=== PATIENT | female | born 1985 | race Caucasian/White ===

== ENCOUNTER 2016-04-19 18:10 | Emergency (ER) | payer OTHER ==
[~2016-04-19] VITALS: Ht 157.5 cm; Wt 73.9 kg
[~2016-04-19 18:10] MED LIST: ACET50TA PO; ANUS2.5C2 PR; COLA100C PO; DOCU10ELUD PO; IBUP600T26 PO; MOM30SS PO; MOTR200T44 PO; PRENTAB66 PO; TYLE325T5 PO; ZOFR4SOL PO
[2016-04-19 19:17] LABS: BASO % 0.3 % (0.0-1.0); EOS # 0.2 K/mm3 (0.0-0.50); EOS % 1.4 % (0.0-3.0); LARGE UNSTAINED CELL # 0.2 K/mm3 (0.0-0.4); LARGE UNSTAINED CELL % 1.5 % (0.0-4.0); LYMPH # 1.9 K/mm3 (1.5-6.5); LYMPH % 16.3 % (24.0-44.0); MEAN CORPUSCULAR HEMOGLOBIN 31.3 pg (27.0-33.0); MEAN CORPUSCULAR HGB CONC 34.7 g/dl (32.0-36.5); MEAN CORPUSCULAR VOLUME 90.2 fl (80.0-96.0); MONO # 0.6 K/mm3 (0.0-0.8); MONO % 5.5 % (0.0-5.0); NEUTROPHILS # 8.6 K/mm3 (1.8-7.7); NEUTROPHILS % 74.9 % (36.0-66.0); PLATELET COUNT, AUTOMATED 135 k/mm3 (150-450); RED CELL DISTRIBUTION WIDTH 12.5 % (11.5-14.5); WHITE BLOOD COUNT 11.4 K/mm3 (4.0-10.0)
[2016-04-19] MEDS ORDERED: ISOVUE-370 76% 100ML VIAL (Q9967) As Ordered ONE (19:27)
[2016-04-19 19:52] LABS: ALBUMIN 2.6 GM/DL (3.2-5.2); ALKALINE PHOSPHATASE 179 U/L (45-117); ALT/SGPT 16 U/L (12-78); AMYLASE 50 U/L (25-115); ANION GAP 11 MEQ/L (8-16); AST/SGOT 19 U/L (15-37); BILIRUBIN,DIRECT < 0.1 MG/DL (0.0-0.2); BILIRUBIN,TOTAL 0.4 MG/DL (0.2-1.0); BLOOD UREA NITROGEN 8 MG/DL (7-18); CALCIUM LEVEL 8.6 MG/DL (8.5-10.1); CARBON DIOXIDE LEVEL 24 MEQ/L (21-32); CHLORIDE LEVEL 106 MEQ/L (98-107); CREATININE FOR GFR 0.71 MG/DL (0.55-1.02); FREE T4 0.92 NG/DL (0.76-1.46); GLOMERULAR FILTRATION RATE > 60.0 (>60); GLUCOSE, FASTING 80 MG/DL (70-105); POTASSIUM SERUM 3.3 MEQ/L (3.5-5.1); SODIUM LEVEL 141 MEQ/L (136-145); TOTAL PROTEIN 6.3 GM/DL (6.4-8.2)
--- NOTE | 2016-04-19 19:52 | REP ---
Limited obstetric sonography: History: Trauma. Findings: Scanning through the gravid uterus demonstrates a viable single intrauterine gestation in a cephalic lie. heart rate is recorded at 163 beats per minute. A posterior placenta is seen without evidence of placenta previa or abruption. Amniotic fluid is subjectively low normal. KIRSTEN is 5.8 cm (7.6 to 24.7 cm). The S/D ratio in the umbilical cord artery by Doppler is 2.46. This is normal. Closed cervical length is 3.4 cm viewed transabdominally. Impression: 1. Viable single intrauterine gestation at 36 weeks 3 days by comparison with prior study; TINA May 14 2016. 2. Low KIRSTEN. Mild oligohydramnios. 3. No traumatic abnormality noted. Signed by Wilbert Cruz MD 04/19/2016 08:00 P
[2016-04-19 19:53] LABS: INR 1.04
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
--- NOTE | 2016-04-19 19:57 | REP ---
Head CT without contrast: History: Syncope. Fall. Comparison study: Comparison head CT study June 23, 2014. CT findings: Bone window settings demonstrate an intact bony calvarium. There is no evidence of skull fracture or incidental bony calvarial lesion. The visualized paranasal sinuses appear clear. No intraorbital abnormality is seen. On soft tissue window setting images; the lateral, third, and fourth ventricles are normal in size and position. Quintanilla-white differentiation pattern is normal above and below the tentorium. There are is no evidence of intracranial hemorrhage. No mass, edema, infarction, or midline shift is seen. No extra-axial fluid collection is appreciated. Impression: Negative noncontrast head CT. Signed by Wilbert Cruz MD 04/19/2016 07:48 P
[2016-04-19] MEDS ORDERED: PRENTAB16 PO (20:07)
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
--- NOTE | 2016-04-19 20:34 | EDDOCDS ---
Nurse's Notes [facility] Name: Silvia Sinha Age: 30 yrs Sex: Female : 1985 Arrival Date: 04/19/2016 Time: 18:10 Bed 9 Private MD: NO PRIMARY PHYSICIAN, . Diagnosis: Fall (on) (from) unspecified stairs and steps; related conditions, unspecified-3rd trimester ; mild oligohydramnios;Abdominal and pelvic pain-rule out placenta injury Presentation: 04/19 18:15 Presenting complaint: Patient states: 36 weeks , syncopal episode at home woke mlb1 up on the stairs reports pain in lower back right flank and LLQ. Adult Sepsis Screening: The patient does not have new or worsening altered mentation. Patient's respiratory rate is less than 22. Systolic blood pressure is greater than 100. Patient has a qSOFA score of 0- Negative Sepsis Screen. Suicide/Homicide risk assessment- the patient denies having any suicidal and/or homicidal ideations and does not present with any other emotional, behavioral or mental health complaints. Status: Patient is not a senior manager creative services or dependent. Transition of care: patient was not received from another setting of care. 18:15 Acuity: JO Level 3 mlb1 18:15 Method Of Arrival: Walkin/Carried/Asstd mlb1 Triage Assessment: 18:17 General: Appears in no apparent distress, Behavior is appropriate for age, cooperative. mlb1 Pain: Location: low back area and right flank, LLQ Pain currently is 8 out of 10 on a pain scale. HIV screening NA for this visit Offered previously. 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 Vitamin Oral tab 1 tab once daily - PMHx: none; - PSHx: Cholecystectomy; - Social history: Smoking status: Patient states was never smoker of tobacco. No barriers to communication noted, The patient speaks fluent Russian, Speaks appropriately for age. - Family history: Not pertinent. - : The pt / caregiver states he / she is not on anticoagulants. Home medication list is obtained from the patient. - Exposure Risk Screening:: None identified. Screenin:37 Screening information is obtained from. Screening information is obtained from the mlc patient. Fall risk: At risk due to injury, prior history of falls. Assistance ADL's: requires no assistance with activities of daily living. Abuse/DV Screen: The patient / caregiver reports he/she is: not in a situation that causes fear, pain or injury. Nutritional screening: No deficits noted. Advance Directives: Currently, there is no health care proxy. home support is adequate. Assessment: 18:37 General: Appears in no apparent distress, appears uncomfortable. indicates discomfort jmk to right lateral abdomen. Gravid abdomen. Presently without the discomfort that she has experienced to upper and lower abd x 1 month with visits to OB regarding the same issues. without vaginal bleeding or discharge.. reports less activity. bowel sounds present x 4. without redness or ecchymosis. Monitor is sr without ectopy . FHT 154 and of good quality.. 19:15 General: Appears in no apparent distress, comfortable, Behavior is anxious, mlc cooperative. Pain: Location: posterior aspect of right lateral abdomen, anterior aspect of right lateral abdomen, posterior aspect of left lateral abdomen, anterior aspect of left lateral abdomen, right lower quadrant and left lower quadrant Pain currently is 8 out of 10 on a pain scale. Pain radiates to low back area. Neurological: Level of Consciousness is awake, alert, obeys commands, Oriented to person, place, time. Cardiovascular: Capillary refill < 3 seconds Heart tones S1 S2 present Rhythm is sinus rhythm. Respiratory: Airway is patent Respiratory effort is even, unlabored, Respiratory pattern is regular, Breath sounds are clear bilaterally. GI: Abdomen is gravid Bowel sounds present X 4 quads. Derm: Skin is pink, warm & dry. Musculoskeletal: Circulation, motion, and sensation intact. 19:53 Reassessment: Patient appears in no apparent distress at this time. Patient states mlc symptoms have not improved. pt taken to and returned from CT, tolerated well. IV fluids infusing per order. monitoring continued by L&D nurse at bedside. 20:28 General: Appears in no apparent distress, uncomfortable, Behavior is cooperative. Pain: mlc Pain currently is 10 out of 10 on a pain scale. Neurological: Level of Consciousness is awake, alert, obeys commands, Oriented to person, place, time. Cardiovascular: Rhythm is sinus rhythm. Respiratory: Airway is patent Respiratory effort is even, unlabored, Respiratory pattern is regular. Derm: Skin is pink, warm & dry. Vital Signs: 18:12 BP 121 / 73; Pulse 106; Resp 18 S; Temp 97.0(O); Pulse Ox 97% ; Weight 73.94 kg (R); gr2 Height 5 ft. 2 in. (157.48 cm) (R); Pain 6/10; 18:36 BP 125 / 76 (auto/); mlc 18:37 Pulse 82 MON; Pulse Ox 95% ; mlc 19:06 BP 116 / 76 (auto/); mlc 19:07 Pulse 96 MON; Pulse Ox 94% ; mlc 19:36 BP 127 / 72 (auto/); mlc 19:37 Pulse 88 MON; Pulse Ox 97% ; mlc 19:51 BP 111 / 58 (auto/); mlc 19:52 Pulse 96 MON; Pulse Ox 99% ; mlc 20:06 BP 128 / 77 (auto/); mlc 20:07 Pulse 94 MON; Pulse Ox 98% ; mlc 20:21 BP 115 / 73 (auto/); mlc 20:22 Pulse 90 MON; Pulse Ox 99% ; mlc 20:29 BP 114 / 71; Pulse 87; Resp 20; Temp 98.4; Pulse Ox 100% on R/A; Pain 10/10; mlc 18:12 Body Mass Index 29.81 (73.94 kg, 157.48 cm) gr2 Vitals: 18:12 Log In Time: April 19, 2016 at 18:12. RN notified that patient meets Red Flag gr2 criteria. ED Course: 18:11 Patient visited by Juan Jose Nichols. gr2 18:11 Patient moved to Waiting gr2 18:12 NO PRIMARY PHYSICIAN, . is Private Physician. gr2 18:15 Patient visited by Juan Jose Nichols. gr2 18:15 Patient visited by Keshav Huffman, BATOOL. mlb1 18:17 Triage Initiated mlb1 18:18 Patient visited by Keshav Huffman RN. mlb1 18:21 Patient moved to 9 mlb1 18:37 The patient / caregiver is instructed regarding the plan of care and ED course. Cardiac mlc monitor on. Pulse ox on. NIBP on. monitoring done by L&D nurse. 18:37 Inserted saline lock: 20 gauge in left antecubital area and blood collected. The mlc patient tolerated the procedure well. by Prateek Kendrick RN. 18:50 Tony Newton MD is Attending Physician. ml 18:51 Patient visited by Tony Newton MD. ml 18:55 Lynette Agudelo,RN is Primary Nurse. mlc 19:01 Type & Screen Sent. mlc 19:01 Lipase Sent. mlc 19:01 Amylase Sent. mlc 19:01 Liver Profile Sent. mlc 19:02 MED Profile Sent. mlc 19:02 CBC with Diff Sent. mlc 19:15 FT4&TSH PANEL Sent. mlc 19:19 Patient visited by Lynette Agudelo,BATOOL. mlc 19:53 D-DIMER QUANT Sent. mlc 19:55 Patient visited by Lynette Agudelo,BATOOL. mlc 20:05 Patient visited by Vicenta Newby PCA. cln 20:05 EKG done. (by ED staff). Reviewed by Tony Newton MD. cln 20:06 [facility] Payment Agreement was scanned into [employer] and attached to record. zo 20:16 Obs. Limited, KIRSTEN US Returned. EDMS 20:16 US Abd Limited Returned. EDMS 20:16 CT Head Without Contrast Returned. EDMS 20:19 Kaleb Sinclair MD is Hospitalizing Provider. ml 20:29 No procedures done that require assistance. mlc Administered Medications: 19:12 Drug: NS 0.9% 1000 ml [sodium chloride 0.9 % intravenous solution] Route: IV; Rate: mlc bolus; Site: left antecubital; Order Results: Lab Order: CBC with Diff; SPEC'M 04/19/16 18:53 Test: WHITE BLOOD COUNT; Value: 11.4; Range: 4.0-10.0; Abnormal: Above high normal; Units: K/mm3; Status: F Test: RED BLOOD COUNT; Value: 4.10; Range: 4.00-5.40; Units: M/mm3; Status: F Test: HEMOGLOBIN; Value: 12.8; Range: 12.0-16.0; Units: g/dl; Status: F Test: HEMATOCRIT; Value: 36.9; Range: 36.0-47.0; Units: %; Status: F Test: MEAN CORPUSCULAR VOLUME; Value: 90.2; Range: 80.0-96.0; Units: fl; Status: F Test: MEAN CORPUSCULAR HEMOGLOBIN; Value: 31.3; Range: 27.0-33.0; Units: pg; Status: F Test: MEAN CORPUSCULAR HGB CONC; Value: 34.7; Range: 32.0-36.5; Units: g/dl; Status: F Test: RED CELL DISTRIBUTION WIDTH; Value: 12.5; Range: 11.5-14.5; Units: %; Status: F Test: PLATELET COUNT, AUTOMATED; Value: 135; Range: 150-450; Abnormal: Below low normal; Units: k/mm3; Status: F Test: NEUTROPHILS %; Value: 74.9; Range: 36.0-66.0; Abnormal: Above high normal; Units: %; Status: F Test: LYMPH %; Value: 16.3; Range: 24.0-44.0; Abnormal: Below low normal; Units: %; Status: F Test: MONO %; Value: 5.5; Range: 0.0-5.0; Abnormal: Above high normal; Units: %; Status: F Test: EOS %; Value: 1.4; Range: 0.0-3.0; Units: %; Status: F Test: BASO %; Value: 0.3; Range: 0.0-1.0; Units: %; Status: F Test: LARGE UNSTAINED CELL %; Value: 1.5; Range: 0.0-4.0; Units: %; Status: F Test: NEUTROPHILS #; Value: 8.6; Range: 1.8-7.7; Abnormal: Above high normal; Units: K/mm3; Status: F Test: LYMPH #; Value: 1.9; Range: 1.5-6.5; Units: K/mm3; Status: F Test: MONO #; Value: 0.6; Range: 0.0-0.8; Units: K/mm3; Status: F Test: EOS #; Value: 0.2; Range: 0.0-0.50; Units: K/mm3; Status: F Test: BASO #; Value: 0.0; Range: 0.0-0.2; Units: K/mm3; Status: F Test: LARGE UNSTAINED CELL #; Value: 0.2; Range: 0.0-0.4; Units: K/mm3; Status: F Lab Order: MED Profile; [facility] 04/19/16 18:53 Test: GLUCOSE, FASTING; Value: 80; Range: 70-105; Units: MG/DL; Status: F Test: BLOOD UREA NITROGEN; Value: 8; Range: 7-18; Units: MG/DL; Status: F Test: CREATININE FOR GFR; Value: 0.71; Range: 0.55-1.02; Units: MG/DL; Status: F Test: GLOMERULAR FILTRATION RATE; Value: > 60.0; Range: >60; Status: F Test: SODIUM LEVEL; Value: 141; Range: 136-145; Units: MEQ/L; Status: F Test: POTASSIUM SERUM; Value: 3.3; Range: 3.5-5.1; Abnormal: Below low normal; Units: MEQ/L; Status: F Test: CHLORIDE LEVEL; Value: 106; Range: 98-107; Units: MEQ/L; Status: F Test: CARBON DIOXIDE LEVEL; Value: 24; Range: 21-32; Units: MEQ/L; Status: F Test: ANION GAP; Value: 11; Range: 8-16; Units: MEQ/L; Status: F Test: CALCIUM LEVEL; Value: 8.6; Range: 8.5-10.1; Units: MG/DL; Status: F Test Note: ; Units are mL/min/1.73 m2 Chronic Kidney Disease Staging per NKF: Stage I & II GFR >=60 Normal to Mildly Decreased Stage III GFR 30-59 Moderately Decreased Stage IV GFR 15-29 Severely Decreased Stage V GFR <15 Very Little GFR Left ESRD GFR <15 on RN MDS Lab Order: Liver Profile; [facility] 04/19/16 18:53 Test: AST/SGOT; Value: 19; Range: 15-37; Units: U/L; Status: F Test: ALT/SGPT; Value: 16; Range: 12-78; Units: U/L; Status: F Test: ALKALINE PHOSPHATASE; Value: 179; Range: 45-117; Abnormal: Above high normal; Units: U/L; Status: F Test: BILIRUBIN,TOTAL; Value: 0.4; Range: 0.2-1.0; Units: MG/DL; Status: F Test: BILIRUBIN,DIRECT; Value: < 0.1; Range: 0.0-0.2; Units: MG/DL; Status: F Test: TOTAL PROTEIN; Value: 6.3; Range: 6.4-8.2; Abnormal: Below low normal; Units: GM/DL; Status: F Test: ALBUMIN; Value: 2.6; Range: 3.2-5.2; Abnormal: Below low normal; Units: GM/DL; Status: F Test: ALBUMIN/GLOBULIN RATIO; Value: 0.70; Range: 1.00-1.93; Abnormal: Below low normal; Status: F Lab Order: Amylase; [facility] 04/19/16 18:53 Test: AMYLASE; Value: 50; Range: 25-115; Units: U/L; Status: F Lab Order: Lipase; [facility] 04/19/16 18:53 Test: LIPASE; Value: 146; Range: 73-393; Units: U/L; Status: F Lab Order: Fibrinogen; [facility] 04/19/16 18:53 Test: FIBRINOGEN; Value: 389; Range: 221-452; Units: MG/DL; Status: F Lab Order: PT/INR; [facility] 04/19/16 18:53 Test: PROTHROMBIN TIME; Value: 13.7; Range: 12.3-14.5; Units: SECONDS; Status: F Test: INR; Value: 1.04; Status: F Test Note: ; THERAPUTIC HUMAN INR VALUES INDICATIONS NORMAL RANGES PROPHYLAXIS/TREATMENT OF: VENOUS THROMBOSIS 2.0-3.0 PULMONARY EMBOLISM 2.0-3.0 PREVENTION OF SYSTEMIC EMBOLISM FROM: TISSUE HEART VALVES 2.0-3.0 ACUTE MYOCARDIAL INFARCTION 2.0-3.0 VALVULAR HEART DISEASE 2.0-3.0 ATRIAL FIBRILLATION 2.0-3.0 MECHANICAL VALVES(HIGH RISK) 2.5-3.5 RECURRENT MYOCARDIAL INFARCTION 2.5-3.5 Lab Order: PTT; [facility] 18:53 Test: PARTIAL THROMBOPLASTIN TIME; Value: 24.0; Range: 26.6-37.1; Abnormal: Below low normal; Units: SECONDS; Status: F Lab Order: FT4&TSH PANEL; [facility] 04/19/16 18:53 Test: THYROID STIMULATING HORMONE; Value: 1.240; Range: 0.358-3.740; Units: uIU/ML; Status: F Test: FREE T4; Value: 0.92; Range: 0.76-1.46; Units: NG/DL; Status: F Lab Order: D-DIMER QUANT; SPEC'M 04/19/16 18:53 Test: D-DIMER QUANT; Value: 1377.4; Range: <500; Abnormal: Above high normal; Units: ng/ml; Status: F Radiology Order: CT Head Without Contrast Test: CT Head Without Contrast REASON FOR EXAMINATION: syncope, fall; Head CT without contrast:; ; History: Syncope. Fall.; ; Comparison study: Comparison head CT study June 23, 2014.; ; CT findings: Bone window settings demonstrate an intact bony calvarium. There; is no evidence of skull fracture or incidental bony calvarial lesion. The; visualized paranasal sinuses appear clear. No intraorbital abnormality is seen.; On soft tissue window setting images; the lateral, third, and fourth ventricles; are normal in size and position. Quintanilla-white differentiation pattern is normal; above and below the tentorium. There are is no evidence of intracranial; hemorrhage. No mass, edema, infarction, or midline shift is seen. No; extra-axial fluid collection is appreciated.; ; Impression:; ; Negative noncontrast head CT.; ; ; Signed by; Wilbert Cruz MD 04/19/2016 07:48 P; Radiology Order: Obs. Limited, KIRSTEN US Test: Obs. Limited, KIRSTEN US REASON FOR EXAMINATION: 36 wks preg; trauma;ruq pain/luq pain; Limited obstetric sonography:; ; History: Trauma.; ; Findings: Scanning through the gravid uterus demonstrates a viable single; intrauterine gestation in a cephalic lie. heart rate is recorded at; 163 beats per minute. A posterior placenta is seen without evidence of placenta; previa or abruption. Amniotic fluid is subjectively low normal. KIRSTEN is 5.8 cm; (7.6 to 24.7 cm). The S/D ratio in the umbilical cord artery by Doppler is 2.46.; This is normal. Closed cervical length is 3.4 cm viewed transabdominally.; ; Impression:; ; 1. Viable single intrauterine gestation at 36 weeks 3 days by comparison with; prior study; TINA May 14 2016.; ; 2. Low KIRSTEN. Mild oligohydramnios.; ; 3. No traumatic abnormality noted.; ; ; Signed by; Wilbert Cruz MD 04/19/2016 08:00 P; Radiology Order: US Abd Limited Test: US Abd Limited REASON FOR EXAMINATION: FAST exam; Limited abdominal sonography:; ; History: Trauma, FAST exam.; ; Findings: Four-quadrant abdominal survey sonography shows no evidence of; abnormal abdominal fluid.; ; Impression:; ; Negative FAST exam post trauma. No free fluid seen.; ; ; Signed by; Wilbert Cruz MD 04/19/2016 08:00 P; Outcome: 20:20 Decision to Hospitalize by Provider. 20:29 Discharge Assessment: Patient awake, alert and oriented x 3. No cognitive and/or mlc functional deficits noted. Patient verbalized understanding of disposition instructions. patient administered narcotics - no. The following High Risk Discharge criteria are identified: None. Admitted to L & D, via wheelchair. Condition: stable. CT Study completed. Ultrasound Study completed. Property :Personal belongings accompany Pt. 20:32 Patient left the ED. [facility] [place] Signatures: Dispatcher [employer] EDMS Tony Newton MD MD Prateek Kendrick,RN RN Keshav Fritz RN RN mlb1 Danitza Corrales Gainslee gr2 Lynette Agudelo,BATOOL RN [facility] [place] Vicenta Newby PCA PCA cln Corrections: (The following items were deleted from the chart) 19:37 19:36 D-DIMER QUANT+LAB sent. [facility] [place] EDMS CHRISTINE
--- NOTE | 2016-04-19 21:41 | HPE ---
DATE OF ADMISSION: A 30-year-old G5, P4 female at 36-3/7 weeks gestation by last menstrual period (LMP) consistent with 9-week ultrasound, estimated date of confinement (EDC) 05/14/2016 presents to the emergency room after a near-syncopal episode that resulted in a fall on some stairs. She started to feel dizzy, and before she knew it she had fallen down three to four stairs, landing on her back toward the right side. She was helped up by one of her children. She is experiencing severe right-sided flank pain after the fall. She is also experiencing diffuse abdominal pain. No bleeding. The baby is moving well. She was directed to come to the emergency room for evaluation. COURSE: Patient initiated care at 14 weeks gestation. Her blood pressure 112/68, weight 154 pounds. has been complicated by chronic low back pain as well as lower pelvic pain for the majority of the . She attributes her back pain to a prior injury she received in high school after a fall. She is taking Tylenol as needed for pain. MEDICAL HISTORY: Back pain. SURGICAL HISTORY: Cholecystectomy. ALLERGIES: CLARITIN AND REGLAN. SOCIAL HISTORY: The patient lives with her partner and their children. She denies cigarettes, alcohol, or drug use. She lives in the [place], [place] area. FAMILY HISTORY: Noncontributory. PHYSICAL EXAMINATION: Blood pressure 120/76, pulse 84. She appears moderately uncomfortable. HEAD AND NECK: Normal. LUNGS: Clear. HEART: Respiratory rate. ABDOMEN: Soft, diffusely tender. No rebound. No guarding. No costovertebral angle (CVA) tenderness. EXTREMITIES: Nontender. LABORATORY DATA: Blood type is O positive, Rubella immune, RPR nonreactive, hepatitis B and C negative. ASSESSMENT: A 30-year-old G5, P4 female at 36-3/7 weeks status post fall. Patient is admitted to the labor for prolonged monitoring. She has been cleared from the emergency room after having both a CAT scan and pelvic ultrasound. She also had an EKG, which was normal.
--- NOTE | 2016-04-19 21:43 | REP ---
CT abdomen and pelvis with IV but without oral contrast: History: 36 weeks gestation, injury in a fall. Right upper quadrant and left upper quadrant pain. Right-sided guarding. Paraspinal tenderness. Study is acquired in the concurrence of the referring ED provider as well as consulting CLOUD ADMINISTRATOR and general surgery providers. CT contrast dose: 75 ml of Isovue [address] findings: Digital lactation nurse radiograph demonstrates a gravid uterus and a cephalic fetus. Umbilical jewelry and a clip in the right upper quadrant are also noted. The lung bases are clear on axial CT images. The liver and the spleen are intact and homogeneous. No pancreatic abnormality is seen. There is a clip in the gallbladder fossa. No adrenal lesion is seen. The kidneys enhance symmetrically and are morphologically intact. There is mild cortical scarring in the right kidney at the upper pole. The right kidney is a little smaller than the left. Right renal length is 9.5 cm. Left kidney measures 12.2 cm in length. There is no evidence of pneumoperitoneum or hemoperitoneum. No retroperitoneal hematoma or mass is seen. The gravid uterus contains a cephalic fetus with a spine along the maternal left side. Placenta is posterior. No CT evidence of abruption. No CT evidence of fracture. Urinary bladder is deformed by the but otherwise unremarkable. Small and large intestinal bowel loops are normal in appearance. Bone window settings show no evidence of maternal fracture. Impression: 1. Mild focal cortical scarring right kidney; right kidney smaller than left. No hydronephrosis. 2. Postcholecystectomy. 3. The gravid uterus cephalic fetus posterior placenta. 4. No evidence of intra-abdominal injury. No fracture seen. Signed by Wilbert Cruz MD 04/20/2016 08:20 A
--- NOTE | 2016-04-21 20:05 | ECGEPIP ---
Stationary ECG Study [facility] - ED Test Date: 2016-04-19 Pat Name: SINDY MARTINI Department: Room: - Gender: F [employer] Worker: harjinder : 1985 Requested By: Tony Newton Order Number: [id number] Reading MD: Yessica Mccoy Measurements Intervals Backus Rate: 86 P: 72 NJ: 142 QRS: 39 QRSD: 88 T: 18 QT: 363 QTc: 434 Interpretive Statements SINUS RHYTHM NO PRIOR FOR COMPARISON Electronically Signed On 04-21-2016 20:05:06 EST by Yessica Mccoy
--- NOTE | 2016-04-21 21:33 | EDDOCDS ---
Physician Documentation [facility] Name: Silvia Sinha Age: 30 yrs Sex: Female : 1985 Arrival Date: 04/19/2016 Time: 18:10 Bed 9 Private MD: NO PRIMARY PHYSICIAN, . Disposition: 04/19 20:20 Critical Care:. ml Disposition: 04/19/16 20:20 Hospitalization ordered by Kaleb Hughes for Inpatient Admission. Preliminary diagnosis are Fall (on) (from) unspecified stairs and steps, related conditions, unspecified - 3rd trimester ; mild oligohydramnios, Abdominal and pelvic pain - rule out placenta injury. - Bed requested for Admit. - Status is Inpatient Admission. mlc - Condition is Stable. - Problem is new. - Symptoms are unchanged. Historical: - Allergies: Claritin; Reglan; - Home Meds: 1. Vitamin Oral tab 1 tab once daily - PMHx: none; - PSHx: Cholecystectomy; - Social history: Smoking status: Patient states was never smoker of tobacco. No barriers to communication noted, The patient speaks fluent Maori, Speaks appropriately for age. - Family history: Not pertinent. - : The pt / caregiver states he / she is not on anticoagulants. Home medication list is obtained from the patient. - Exposure Risk Screening:: None identified. 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 2 in. (157.48 cm) (R); Pain 6/10; 18:36 BP 125 / 76 (auto/); mlc 18:37 Pulse 82 MON; Pulse Ox 95% ; mlc 19:06 BP 116 / 76 (auto/); mlc 19:07 Pulse 96 MON; Pulse Ox 94% ; mlc 19:36 BP 127 / 72 (auto/); mlc 19:37 Pulse 88 MON; Pulse Ox 97% ; mlc 19:51 BP 111 / 58 (auto/); mlc 19:52 Pulse 96 MON; Pulse Ox 99% ; mlc 20:06 BP 128 / 77 (auto/); mlc 20:07 Pulse 94 MON; Pulse Ox 98% ; mlc 20:21 BP 115 / 73 (auto/); mlc 20:22 Pulse 90 MON; Pulse Ox 99% ; mlc 20:29 BP 114 / 71; Pulse 87; Resp 20; Temp 98.4; Pulse Ox 100% on R/A; Pain 10/10; mlc 18:12 Body Mass Index 29.81 (73.94 kg, 157.48 cm) gr2 MDM: 18:56 ECG WITH READING ER PHYS+CARDIAG ordered. EDMS 19:00 IV Saline Lock ordered. ml 19:00 Heart Tones ordered. ml 19:01 Type & Screen Ordered. EDMS 19:01 CBC with Diff Ordered. EDMS 19:01 MED Profile Ordered. EDMS 19:01 Liver Profile Ordered. EDMS 19:01 Amylase Ordered. EDMS 19:01 Lipase Ordered. EDMS 19:06 Shuttle Buggy Operator/Pulse Ox/q 15 min VS ordered. ml 19:06 Rhythm Strip to chart ordered. ml 19:06 NS 0.9% 1000 ml IV at bolus once ordered. ml 19:07 [facility] Order ordered. ml 19:08 BED REQUEST+ADM ordered. EDMS 19:09 Fibrinogen Ordered. EDMS 19:09 PT/INR Ordered. EDMS 19:09 PTT Ordered. EDMS 19:09 Obs. Limited, KIRSTEN US Ordered. EDMS 19:09 Kleihauer Betke Ordered. EDMS 19:09 CT ABD & PELVIS: IV Contrast Only Ordered. EDMS 19:09 CT Head Without Contrast Ordered. EDMS 19:14 FT4&TSH PANEL Ordered. EDMS 19:14 US Abd Limited Ordered. EDMS 19:31 [facility] Order complete. kb5 19:37 D-DIMER QUANT Ordered. EDMS 19:38 Financial registration complete. zo 20:06 [facility] Payment Agreement was scanned into [employer] and attached to record. zo 20:15 CBC with Diff Reviewed. ml 20:15 MED Profile Reviewed. ml 20:15 Liver Profile Reviewed. ml 20:15 PTT Reviewed. ml 20:15 D-DIMER QUANT Reviewed. ml 20:15 Amylase Reviewed. ml 20:15 Lipase Reviewed. ml 20:15 Fibrinogen Reviewed. ml 20:15 PT/INR Reviewed. ml 20:15 FT4&TSH PANEL Reviewed. ml 20:21 CT Head Without Contrast Reviewed. ml 20:21 Obs. Limited, KIRSTEN US Reviewed. ml 20:21 US Abd Limited Reviewed. ml 20:28 ED course: spoke to dr hughes. significant other not making eye contact or engaging w leonel me or the pt. i am uncomfortable with this and discussed w dr hughes to explore upstairs re rule out domestic violence. L and D RN had similar concern when i asked to speak to her outside the room. mlg. 04/20 10:54 T-Sheet-- Draft Copy was scanned into [employer] and attached to record. gb 10:54 ECG/EKG was scanned into [employer] and attached to record. gb Administered Medications: 04/19 19:12 Drug: NS 0.9% 1000 ml [sodium chloride 0.9 % intravenous solution] Route: IV; Rate: mlc bolus; Site: left antecubital; Critical Care Time: 20:20 Critical care time: Bedside Care: 90 minutes, Consultation: 10 minutes. Total time: 100 ml minutes Signatures: Dispatcher [employer] EDTony Bravo MD MD ml Knapp, Jean,RN RN Rafaela Núñez, Latrell Reg Keshav Higgins RN RN mlb1 Danitza Corrales Kristopher, SURFACE MOUNT TECHNOLOGY OPERATOR SURFACE MOUNT TECHNOLOGY OPERATOR kb5 Lynette Agudelo,RN RN mlc The chart was reviewed and I authenticate all verbal orders and agree with the evaluation and treatment provided.Corrections: (The following items were deleted from the chart) 19:09 19:07 US OBS EACH ADD GEST+US ordered. EDMS EDMS 19:14 19:09 FT4&TSH PANEL+LAB ordered. EDMS EDMS 19:37 19:32 D-DIMER QUANT+LAB ordered. EDMS EDMS Attachments: 20:06 [facility] Payment Agreement zo 04/20 10:54 T-Sheet-- Draft Copy gb 10:54 ECG/EKG gb Chart Complete MTDD
--- NOTE | 2016-04-21 21:34 | EDDOCDS ---
Physician Documentation [facility] Name: Silvia Sinha Age: 30 yrs Sex: Female : 1985 Arrival Date: 04/19/2016 Time: 18:10 Bed 9 Private MD: NO PRIMARY PHYSICIAN, . Disposition: 04/19 20:20 Critical Care:. ml Disposition: 04/19/16 20:20 Hospitalization ordered by Kaleb Hughes for Inpatient Admission. Preliminary diagnosis are Fall (on) (from) unspecified stairs and steps, related conditions, unspecified - 3rd trimester ; mild oligohydramnios, Abdominal and pelvic pain - rule out placenta injury. - Bed requested for Admit. - Status is Inpatient Admission. mlc - Condition is Stable. - Problem is new. - Symptoms are unchanged. Historical: - Allergies: Claritin; Reglan; - Home Meds: 1. Vitamin Oral tab 1 tab once daily - PMHx: none; - PSHx: Cholecystectomy; - Social history: Smoking status: Patient states was never smoker of tobacco. No barriers to communication noted, The patient speaks fluent Vietnamese, Speaks appropriately for age. - Family history: Not pertinent. - : The pt / caregiver states he / she is not on anticoagulants. Home medication list is obtained from the patient. - Exposure Risk Screening:: None identified. 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 2 in. (157.48 cm) (R); Pain 6/10; 18:36 BP 125 / 76 (auto/); mlc 18:37 Pulse 82 MON; Pulse Ox 95% ; mlc 19:06 BP 116 / 76 (auto/); mlc 19:07 Pulse 96 MON; Pulse Ox 94% ; mlc 19:36 BP 127 / 72 (auto/); mlc 19:37 Pulse 88 MON; Pulse Ox 97% ; mlc 19:51 BP 111 / 58 (auto/); mlc 19:52 Pulse 96 MON; Pulse Ox 99% ; mlc 20:06 BP 128 / 77 (auto/); mlc 20:07 Pulse 94 MON; Pulse Ox 98% ; mlc 20:21 BP 115 / 73 (auto/); mlc 20:22 Pulse 90 MON; Pulse Ox 99% ; mlc 20:29 BP 114 / 71; Pulse 87; Resp 20; Temp 98.4; Pulse Ox 100% on R/A; Pain 10/10; mlc 18:12 Body Mass Index 29.81 (73.94 kg, 157.48 cm) gr2 MDM: 18:56 ECG WITH READING ER PHYS+CARDIAG ordered. EDMS 19:00 IV Saline Lock ordered. ml 19:00 Heart Tones ordered. ml 19:01 Type & Screen Ordered. EDMS 19:01 CBC with Diff Ordered. EDMS 19:01 MED Profile Ordered. EDMS 19:01 Liver Profile Ordered. EDMS 19:01 Amylase Ordered. EDMS 19:01 Lipase Ordered. EDMS 19:06 Tennis Net Maker/Pulse Ox/q 15 min VS ordered. ml 19:06 Rhythm Strip to chart ordered. ml 19:06 NS 0.9% 1000 ml IV at bolus once ordered. ml 19:07 [facility] Financial Accounting Analyst Order ordered. ml 19:08 BED REQUEST+ADM ordered. EDMS 19:09 Fibrinogen Ordered. EDMS 19:09 PT/INR Ordered. EDMS 19:09 PTT Ordered. EDMS 19:09 Obs. Limited, KIRSTEN US Ordered. EDMS 19:09 Kleihauer Betke Ordered. EDMS 19:09 CT ABD & PELVIS: IV Contrast Only Ordered. EDMS 19:09 CT Head Without Contrast Ordered. EDMS 19:14 FT4&TSH PANEL Ordered. EDMS 19:14 US Abd Limited Ordered. EDMS 19:31 [facility] Financial Accounting Analyst Order complete. kb5 19:37 D-DIMER QUANT Ordered. EDMS 19:38 Financial registration complete. zo 20:06 [facility] Payment Agreement was scanned into [employer] and attached to record. zo 20:15 CBC with Diff Reviewed. ml 20:15 MED Profile Reviewed. ml 20:15 Liver Profile Reviewed. ml 20:15 PTT Reviewed. ml 20:15 D-DIMER QUANT Reviewed. ml 20:15 Amylase Reviewed. ml 20:15 Lipase Reviewed. ml 20:15 Fibrinogen Reviewed. ml 20:15 PT/INR Reviewed. ml 20:15 FT4&TSH PANEL Reviewed. ml 20:21 CT Head Without Contrast Reviewed. ml 20:21 Obs. Limited, KIRSTEN US Reviewed. ml 20:21 US Abd Limited Reviewed. ml 20:28 ED course: spoke to dr hughes. significant other not making eye contact or engaging w leonel me or the pt. i am uncomfortable with this and discussed w dr hughes to explore upstairs re rule out domestic violence. L and D RN had similar concern when i asked to speak to her outside the room. mlg. 04/20 10:54 T-Sheet-- Draft Copy was scanned into [employer] and attached to record. gb 10:54 ECG/EKG was scanned into [employer] and attached to record. gb Administered Medications: 04/19 19:12 Drug: NS 0.9% 1000 ml [sodium chloride 0.9 % intravenous solution] Route: IV; Rate: mlc bolus; Site: left antecubital; Critical Care Time: 20:20 Critical care time: Bedside Care: 90 minutes, Consultation: 10 minutes. Total time: 100 ml minutes Signatures: Dispatcher [employer] EDTony Bravo MD MD ml Knapp, Jean,RN RN Rafaela Núñez, Latrell Reg Keshav Higgins RN RN mlb1 Danitza Corrales Kristopher, ROOM WORKER ROOM WORKER kb5 Lynette Agudelo,RN RN mlc The chart was reviewed and I authenticate all verbal orders and agree with the evaluation and treatment provided.Corrections: (The following items were deleted from the chart) 19:09 19:07 US OBS EACH ADD GEST+US ordered. EDMS EDMS 19:14 19:09 FT4&TSH PANEL+LAB ordered. EDMS EDMS 19:37 19:32 D-DIMER QUANT+LAB ordered. EDMS EDMS Attachments: 20:06 [facility] [place] Agreement zo 04/20 10:54 T-Sheet-- Draft Copy gb 10:54 ECG/EKG gb Chart Complete MTDD
--- NOTE | 2016-04-21 21:34 | EDDOCDS ---
Nurse's Notes [facility] Name: Sindy Martini Age: 30 yrs Sex: Female : 1985 Arrival Date: 04/19/2016 Time: 18:10 Bed 9 Private MD: NO PRIMARY PHYSICIAN, . Diagnosis: Fall (on) (from) unspecified stairs and steps; related conditions, unspecified-3rd trimester ; mild oligohydramnios;Abdominal and pelvic pain-rule out placenta injury Presentation: 04/19 18:15 Presenting complaint: Patient states: 36 weeks , syncopal episode at home woke mlb1 up on the stairs reports pain in lower back right flank and LLQ. Adult Sepsis Screening: The patient does not have new or worsening altered mentation. Patient's respiratory rate is less than 22. Systolic blood pressure is greater than 100. Patient has a qSOFA score of 0- Negative Sepsis Screen. Suicide/Homicide risk assessment- the patient denies having any suicidal and/or homicidal ideations and does not present with any other emotional, behavioral or mental health complaints. Status: Patient is not a management services technician or dependent. Transition of care: patient was not received from another setting of care. 18:15 Acuity: JO Level 3 mlb1 18:15 Method Of Arrival: Walkin/Carried/Asstd mlb1 Triage Assessment: 18:17 General: Appears in no apparent distress, Behavior is appropriate for age, cooperative. mlb1 Pain: Location: low back area and right flank, LLQ Pain currently is 8 out of 10 on a pain scale. HIV screening NA for this visit Offered previously. 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 Vitamin Oral tab 1 tab once daily - PMHx: none; - PSHx: Cholecystectomy; - Social history: Smoking status: Patient states was never smoker of tobacco. No barriers to communication noted, The patient speaks fluent Cameroonian, Speaks appropriately for age. - Family history: Not pertinent. - : The pt / caregiver states he / she is not on anticoagulants. Home medication list is obtained from the patient. - Exposure Risk Screening:: None identified. Screenin:37 Screening information is obtained from. Screening information is obtained from the mlc patient. Fall risk: At risk due to injury, prior history of falls. Assistance ADL's: requires no assistance with activities of daily living. Abuse/DV Screen: The patient / caregiver reports he/she is: not in a situation that causes fear, pain or injury. Nutritional screening: No deficits noted. Advance Directives: Currently, there is no health care proxy. home support is adequate. Assessment: 18:37 General: Appears in no apparent distress, appears uncomfortable. indicates discomfort jmk to right lateral abdomen. Gravid abdomen. Presently without the discomfort that she has experienced to upper and lower abd x 1 month with visits to OB regarding the same issues. without vaginal bleeding or discharge.. reports less activity. bowel sounds present x 4. without redness or ecchymosis. Monitor is sr without ectopy . FHT 154 and of good quality.. 19:15 General: Appears in no apparent distress, comfortable, Behavior is anxious, mlc cooperative. Pain: Location: posterior aspect of right lateral abdomen, anterior aspect of right lateral abdomen, posterior aspect of left lateral abdomen, anterior aspect of left lateral abdomen, right lower quadrant and left lower quadrant Pain currently is 8 out of 10 on a pain scale. Pain radiates to low back area. Neurological: Level of Consciousness is awake, alert, obeys commands, Oriented to person, place, time. Cardiovascular: Capillary refill < 3 seconds Heart tones S1 S2 present Rhythm is sinus rhythm. Respiratory: Airway is patent Respiratory effort is even, unlabored, Respiratory pattern is regular, Breath sounds are clear bilaterally. GI: Abdomen is gravid Bowel sounds present X 4 quads. Derm: Skin is pink, warm & dry. Musculoskeletal: Circulation, motion, and sensation intact. 19:53 Reassessment: Patient appears in no apparent distress at this time. Patient states mlc symptoms have not improved. pt taken to and returned from CT, tolerated well. IV fluids infusing per order. monitoring continued by L&D nurse at bedside. 20:28 General: Appears in no apparent distress, uncomfortable, Behavior is cooperative. Pain: mlc Pain currently is 10 out of 10 on a pain scale. Neurological: Level of Consciousness is awake, alert, obeys commands, Oriented to person, place, time. Cardiovascular: Rhythm is sinus rhythm. Respiratory: Airway is patent Respiratory effort is even, unlabored, Respiratory pattern is regular. Derm: Skin is pink, warm & dry. Vital Signs: 18:12 BP 121 / 73; Pulse 106; Resp 18 S; Temp 97.0(O); Pulse Ox 97% ; Weight 73.94 kg (R); gr2 Height 5 ft. 2 in. (157.48 cm) (R); Pain 6/10; 18:36 BP 125 / 76 (auto/); mlc 18:37 Pulse 82 MON; Pulse Ox 95% ; mlc 19:06 BP 116 / 76 (auto/); mlc 19:07 Pulse 96 MON; Pulse Ox 94% ; mlc 19:36 BP 127 / 72 (auto/); mlc 19:37 Pulse 88 MON; Pulse Ox 97% ; mlc 19:51 BP 111 / 58 (auto/); mlc 19:52 Pulse 96 MON; Pulse Ox 99% ; mlc 20:06 BP 128 / 77 (auto/); mlc 20:07 Pulse 94 MON; Pulse Ox 98% ; mlc 20:21 BP 115 / 73 (auto/); mlc 20:22 Pulse 90 MON; Pulse Ox 99% ; mlc 20:29 BP 114 / 71; Pulse 87; Resp 20; Temp 98.4; Pulse Ox 100% on R/A; Pain 10/10; mlc 18:12 Body Mass Index 29.81 (73.94 kg, 157.48 cm) gr2 Vitals: 18:12 Log In Time: April 19, 2016 at 18:12. RN notified that patient meets Red Flag gr2 criteria. ED Course: 18:11 Patient visited by Juan Jose Nichols. gr2 18:11 Patient moved to Waiting gr2 18:12 NO PRIMARY PHYSICIAN, . is Private Physician. gr2 18:15 Patient visited by Juan Jose Nichols. gr2 18:15 Patient visited by Keshav Huffman, BATOOL. mlb1 18:17 Triage Initiated mlb1 18:18 Patient visited by Keshav Huffman RN. mlb1 18:21 Patient moved to 9 mlb1 18:37 The patient / caregiver is instructed regarding the plan of care and ED course. Cardiac mlc monitor on. Pulse ox on. NIBP on. monitoring done by L&D nurse. 18:37 Inserted saline lock: 20 gauge in left antecubital area and blood collected. The mlc patient tolerated the procedure well. by Prateek Kendrick, BATOOL. 18:50 Tony Newton MD is Attending Physician. ml 18:51 Patient visited by Tony Newton MD. ml 18:55 Lynette Agudelo,RN is Primary Nurse. mlc 19:01 Type & Screen Sent. mlc 19:01 Lipase Sent. mlc 19:01 Amylase Sent. mlc 19:01 Liver Profile Sent. mlc 19:02 MED Profile Sent. mlc 19:02 CBC with Diff Sent. mlc 19:15 FT4&TSH PANEL Sent. mlc 19:19 Patient visited by Lynette Agudelo,BATOOL. mlc 19:53 D-DIMER QUANT Sent. mlc 19:55 Patient visited by Lynette Agudelo,BATOOL. mlc 20:05 Patient visited by Vicenta Newby PCA. cln 20:05 EKG done. (by ED staff). Reviewed by Tony Newton MD. cln 20:06 [facility] [place] into [employer] and attached to record. zo 20:16 Obs. Limited, KIRSTEN US Returned. EDMS 20:16 US Abd Limited Returned. EDMS 20:16 CT Head Without Contrast Returned. EDMS 20:19 Kaleb Sinclair MD is Hospitalizing Provider. ml 20:29 No procedures done that require assistance. mlc 22:17 CT ABD & PELVIS: IV Contrast Only Returned. EDMS 04/20 10:54 T-Sheet-- Draft Copy was scanned into [employer] and attached to record. gb 10:54 ECG/EKG was scanned into [employer] and attached to record. gb 04/21 20:20 EKG-ADULT Returned. EDMS Administered Medications: 04/19 19:12 Drug: NS 0.9% 1000 ml [sodium chloride 0.9 % intravenous solution] Route: IV; Rate: mlc bolus; Site: left antecubital; Order Results: Lab Order: CBC with Diff; SPEC'M 04/19/16 18:53 Test: WHITE BLOOD COUNT; Value: 11.4; Range: 4.0-10.0; Abnormal: Above high normal; Units: K/mm3; Status: F Test: RED BLOOD COUNT; Value: 4.10; Range: 4.00-5.40; Units: M/mm3; Status: F Test: HEMOGLOBIN; Value: 12.8; Range: 12.0-16.0; Units: g/dl; Status: F Test: HEMATOCRIT; Value: 36.9; Range: 36.0-47.0; Units: %; Status: F Test: MEAN CORPUSCULAR VOLUME; Value: 90.2; Range: 80.0-96.0; Units: fl; Status: F Test: MEAN CORPUSCULAR HEMOGLOBIN; Value: 31.3; Range: 27.0-33.0; Units: pg; Status: F Test: MEAN CORPUSCULAR HGB CONC; Value: 34.7; Range: 32.0-36.5; Units: g/dl; Status: F Test: RED CELL DISTRIBUTION WIDTH; Value: 12.5; Range: 11.5-14.5; Units: %; Status: F Test: PLATELET COUNT, AUTOMATED; Value: 135; Range: 150-450; Abnormal: Below low normal; Units: k/mm3; Status: F Test: NEUTROPHILS %; Value: 74.9; Range: 36.0-66.0; Abnormal: Above high normal; Units: %; Status: F Test: LYMPH %; Value: 16.3; Range: 24.0-44.0; Abnormal: Below low normal; Units: %; Status: F Test: MONO %; Value: 5.5; Range: 0.0-5.0; Abnormal: Above high normal; Units: %; Status: F Test: EOS %; Value: 1.4; Range: 0.0-3.0; Units: %; Status: F Test: BASO %; Value: 0.3; Range: 0.0-1.0; Units: %; Status: F Test: LARGE UNSTAINED CELL %; Value: 1.5; Range: 0.0-4.0; Units: %; Status: F Test: NEUTROPHILS #; Value: 8.6; Range: 1.8-7.7; Abnormal: Above high normal; Units: K/mm3; Status: F Test: LYMPH #; Value: 1.9; Range: 1.5-6.5; Units: K/mm3; Status: F Test: MONO #; Value: 0.6; Range: 0.0-0.8; Units: K/mm3; Status: F Test: EOS #; Value: 0.2; Range: 0.0-0.50; Units: K/mm3; Status: F Test: BASO #; Value: 0.0; Range: 0.0-0.2; Units: K/mm3; Status: F Test: LARGE UNSTAINED CELL #; Value: 0.2; Range: 0.0-0.4; Units: K/mm3; Status: F Lab Order: MED Profile; SPEC'M 04/19/16 18:53 Test: GLUCOSE, FASTING; Value: 80; Range: 70-105; Units: MG/DL; Status: F Test: BLOOD UREA NITROGEN; Value: 8; Range: 7-18; Units: MG/DL; Status: F Test: CREATININE FOR GFR; Value: 0.71; Range: 0.55-1.02; Units: MG/DL; Status: F Test: GLOMERULAR FILTRATION RATE; Value: > 60.0; Range: >60; Status: F Test: SODIUM LEVEL; Value: 141; Range: 136-145; Units: MEQ/L; Status: F Test: POTASSIUM SERUM; Value: 3.3; Range: 3.5-5.1; Abnormal: Below low normal; Units: MEQ/L; Status: F Test: CHLORIDE LEVEL; Value: 106; Range: 98-107; Units: MEQ/L; Status: F Test: CARBON DIOXIDE LEVEL; Value: 24; Range: 21-32; Units: MEQ/L; Status: F Test: ANION GAP; Value: 11; Range: 8-16; Units: MEQ/L; Status: F Test: CALCIUM LEVEL; Value: 8.6; Range: 8.5-10.1; Units: MG/DL; Status: F Test Note: ; Units are mL/min/1.73 m2 Chronic Kidney Disease Staging per NKF: Stage I & II GFR >=60 Normal to Mildly Decreased Stage III GFR 30-59 Moderately Decreased Stage IV GFR 15-29 Severely Decreased Stage V GFR <15 Very Little GFR Left ESRD GFR <15 on CUSTOM GARMENT DESIGNER Lab Order: Liver Profile; SPEC'M 04/19/16 18:53 Test: AST/SGOT; Value: 19; Range: 15-37; Units: U/L; Status: F Test: ALT/SGPT; Value: 16; Range: 12-78; Units: U/L; Status: F Test: ALKALINE PHOSPHATASE; Value: 179; Range: 45-117; Abnormal: Above high normal; Units: U/L; Status: F Test: BILIRUBIN,TOTAL; Value: 0.4; Range: 0.2-1.0; Units: MG/DL; Status: F Test: BILIRUBIN,DIRECT; Value: < 0.1; Range: 0.0-0.2; Units: MG/DL; Status: F Test: TOTAL PROTEIN; Value: 6.3; Range: 6.4-8.2; Abnormal: Below low normal; Units: GM/DL; Status: F Test: ALBUMIN; Value: 2.6; Range: 3.2-5.2; Abnormal: Below low normal; Units: GM/DL; Status: F Test: ALBUMIN/GLOBULIN RATIO; Value: 0.70; Range: 1.00-1.93; Abnormal: Below low normal; Status: F Lab Order: Amylase; [facility] 04/19/16 18:53 Test: AMYLASE; Value: 50; Range: 25-115; Units: U/L; Status: F Lab Order: Lipase; [facility] 04/19/16 18:53 Test: LIPASE; Value: 146; Range: 73-393; Units: U/L; Status: F Lab Order: Type & Screen; [facility] 04/19/16 18:53 Test: BLOOD TYPE; Value: O POS; Status: F Test: AB SCREEN (INDIRECT ISA)VIS; Value: NEGATIVE; Status: F Lab Order: Kleihauer Betke; [facility] 04/19/16 18:53 Test: DEX (KLEIHAUER BETKE); Value: 0.0000; Units: RATIO; Status: F Test Note: ; No cells seen. Lab Order: Fibrinogen; [facility] 04/19/16 18:53 Test: FIBRINOGEN; Value: 389; Range: 221-452; Units: MG/DL; Status: F Lab Order: PT/INR; [facility] 04/19/16 18:53 Test: PROTHROMBIN TIME; Value: 13.7; Range: 12.3-14.5; Units: SECONDS; Status: F Test: INR; Value: 1.04; Status: F Test Note: ; THERAPUTIC HUMAN INR VALUES INDICATIONS NORMAL RANGES PROPHYLAXIS/TREATMENT OF: VENOUS THROMBOSIS 2.0-3.0 PULMONARY EMBOLISM 2.0-3.0 PREVENTION OF SYSTEMIC EMBOLISM FROM: TISSUE HEART VALVES 2.0-3.0 ACUTE MYOCARDIAL INFARCTION 2.0-3.0 VALVULAR HEART DISEASE 2.0-3.0 ATRIAL FIBRILLATION 2.0-3.0 MECHANICAL VALVES(HIGH RISK) 2.5-3.5 RECURRENT MYOCARDIAL INFARCTION 2.5-3.5 Lab Order: PTT; SPEC'M 04/19/16 18:53 Test: PARTIAL THROMBOPLASTIN TIME; Value: 24.0; Range: 26.6-37.1; Abnormal: Below low normal; Units: SECONDS; Status: F Lab Order: FT4&TSH PANEL; SPEC' 04/19/16 18:53 Test: THYROID STIMULATING HORMONE; Value: 1.240; Range: 0.358-3.740; Units: uIU/ML; Status: F Test: FREE T4; Value: 0.92; Range: 0.76-1.46; Units: NG/DL; Status: F Lab Order: D-DIMER QUANT; SPEC' 04/19/16 18:53 Test: D-DIMER QUANT; Value: 1377.4; Range: <500; Abnormal: Above high normal; Units: ng/ml; Status: F Radiology Order: EKG-ADULT Test: EKG-ADULT REASON FOR EXAMINATION: Syncope; Stationary ECG Study; [facility] - ED; ; Test Date: 2016-04-19; Pat Name: SINDY MARTINI Department:; Room: -; Gender: F 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 Right upper quadrant and left; upper quadrant pain. Right-sided guarding. Paraspinal tenderness.; ; Study is acquired in the concurrence of the referring ED provider as well as; consulting EXPLOSIVE OPERATOR SUPERVISOR and general surgery providers.; ; CT contrast dose: 75 ml of Isovue 370 is administered intravenously.; ; CT findings: Digital front office attendant radiograph demonstrates a gravid uterus and a; cephalic fetus. Umbilical jewelry and a clip in the right upper quadrant are; also noted.; ; The lung bases are clear on axial CT images. The liver and the spleen are intact; and homogeneous. No pancreatic abnormality is seen. There is a clip in the; gallbladder fossa. No adrenal lesion is seen. The kidneys enhance symmetrically; and are morphologically intact. There is mild cortical scarring in the right; kidney at the upper pole. The right kidney is a little smaller than the left.; Right renal length is 9.5 cm. Left kidney measures 12.2 cm in length. There is; no evidence of pneumoperitoneum or hemoperitoneum. No retroperitoneal hematoma; or mass is seen. The gravid uterus contains a cephalic fetus with a spine; along the maternal left side. Placenta is posterior. No CT evidence of; abruption. No CT evidence of fracture. Urinary bladder is deformed by the; but otherwise unremarkable. Small and large intestinal bowel loops are; normal in appearance.; ; Bone window settings show no evidence of maternal fracture.; ; Impression:; ; 1. Mild focal cortical scarring right kidney; right kidney smaller than left.; No hydronephrosis.; ; 2. Postcholecystectomy.; ; 3. The gravid uterus cephalic fetus posterior placenta.; ; 4. No evidence of intra-abdominal injury. No fracture seen.; ; ; Signed by; Wilbert Cruz MD 04/20/2016 08:20 A; Radiology Order: CT Head Without Contrast Test: CT Head Without Contrast REASON FOR EXAMINATION: syncope, fall; Head CT without contrast:; ; History: Syncope. Fall.; ; Comparison study: Comparison head CT study June 23, 2014.; ; CT findings: Bone window settings demonstrate an intact bony calvarium. There; is no evidence of skull fracture or incidental bony calvarial lesion. The; visualized paranasal sinuses appear clear. No intraorbital abnormality is seen.; On soft tissue window setting images; the lateral, third, and fourth ventricles; are normal in size and position. Quintanilla-white differentiation pattern is normal; above and below the tentorium. There are is no evidence of intracranial; hemorrhage. No mass, edema, infarction, or midline shift is seen. No; extra-axial fluid collection is appreciated.; ; Impression:; ; Negative noncontrast head CT.; ; ; Signed by; Wilbert Cruz MD 04/19/2016 07:48 P; Radiology Order: Obs. Limited, KIRSTEN US Test: Obs. Limited, KIRSTEN US REASON FOR EXAMINATION: 36 wks preg; trauma;ruq pain/luq pain; Limited obstetric sonography:; ; History: Trauma.; ; Findings: Scanning through the gravid uterus demonstrates a viable single; intrauterine gestation in a cephalic lie. heart rate is recorded at; 163 beats per minute. A posterior placenta is seen without evidence of placenta; previa or abruption. Amniotic fluid is subjectively low normal. KIRSTEN is 5.8 cm; (7.6 to 24.7 cm). The S/D ratio in the umbilical cord artery by Doppler is 2.46.; This is normal. Closed cervical length is 3.4 cm viewed transabdominally.; ; Impression:; ; 1. Viable single intrauterine gestation at 36 weeks 3 days by comparison with; prior study; TINA May 14 2016.; ; 2. Low KIRSTEN. Mild oligohydramnios.; ; 3. No traumatic abnormality noted.; ; ; Signed by; Wilbert Cruz MD 04/19/2016 08:00 P; Radiology Order: US Abd Limited Test: US Abd Limited REASON FOR EXAMINATION: FAST exam; Limited abdominal sonography:; ; History: Trauma, FAST exam.; ; Findings: Four-quadrant abdominal survey sonography shows no evidence of; abnormal abdominal fluid.; ; Impression:; ; Negative FAST exam post trauma. No free fluid seen.; ; ; Signed by; Wilbert Cruz MD 04/19/2016 08:00 P; Outcome: 20:20 Decision to Hospitalize by Provider. ml 20:29 Discharge Assessment: Patient awake, alert and oriented x 3. No cognitive and/or mlc functional deficits noted. Patient verbalized understanding of disposition instructions. patient administered narcotics - no. The following High Risk Discharge criteria are identified: None. Admitted to L & D, via wheelchair. Condition: stable. CT Study completed. Ultrasound Study completed. Property :Personal belongings accompany Pt. 20:32 Patient left the ED. [facility] [place] Signatures: Dispatcher [employer] EDTony Bravo MD MD ml Prateek Kendrick,RN RN Rafaela Núñez, Reg Reg gb Keshav Huffman RN RN mlb1 Danitza Corrales Gainslee gr2 Lynette Agudelo RN RN mlc Nichols, Crystal, PCA PATTERN MAKER cln Corrections: (The following items were deleted from the chart) 19:37 19:36 D-DIMER QUANT+LAB sent. [facility] [place] EDAL Chart Complete MTDD
== END 2016-04-19 20:32 | disposition admitted as inpatient to this hospital (09) ==
LOC: M ED 18:10
DX: O9A.213 Injury, poisoning and certain other consequences of external causes complicating pregnancy, third trimester (principal); M54.9 Dorsalgia, unspecified; R10.2 Pelvic and perineal pain; W10.8XXA Fall (on) (from) other stairs and steps, initial encounter; Y92.098 Other place in other non-institutional residence as the place of occurrence of the external cause; Y93.89 Activity, other specified; Y99.8 Other external cause status; O41.03X1 Oligohydramnios, third trimester, fetus 1; Z88.8 Allergy status to other drugs, medicaments and biological substances; Z3A.36 36 weeks gestation of pregnancy
CPT/HCPCS: 36415; 70450; 74177; 76705; 76815; 80048; 80076; 82150; 83690; 84439; 84443; 85025; 85379; 85384; 85460; 85610; 85730; 86850; 86900; 86901; 93005; 93041; 99285; Q9967

== ENCOUNTER 2016-04-19 20:41 | Outpatient (CLI) | payer OTHER ==
[~2016-04-19] VITALS: Ht 157.5 cm; Wt 72.0 kg
[~2016-04-19 20:41] MED LIST changes: +PRENTAB16 PO
[2016-04-19 21:06] VITALS: BP 110/67
--- NOTE | 2016-04-19 21:41 | HPE ---
DATE OF ADMISSION: 04/19/2016 A 30-year-old G5, P4 female at 36-3/7 weeks gestation by last menstrual period (LMP) consistent with 9-week ultrasound, estimated date of confinement (EDC) 05/14/2016 presents to the emergency room after a near-syncopal episode that resulted in a fall on some stairs. She started to feel dizzy, and before she knew it she had fallen down three to four stairs, landing on her back toward the right side. She was helped up by one of her children. She is experiencing severe right-sided flank pain after the fall. She is also experiencing diffuse abdominal pain. No bleeding. The baby is moving well. She was directed to come to the emergency room for evaluation. COURSE: Patient initiated care at 14 weeks gestation. Her blood pressure 112/68, weight 154 pounds. has been complicated by chronic low back pain as well as lower pelvic pain for the majority of the . She attributes her back pain to a prior injury she received in high school after a fall. She is taking Tylenol as needed for pain. MEDICAL HISTORY: Back pain. SURGICAL HISTORY: Cholecystectomy. ALLERGIES: CLARITIN AND REGLAN. SOCIAL HISTORY: The patient lives with her partner and their children. She denies cigarettes, alcohol, or drug use. She lives in the [place], [place] area. FAMILY HISTORY: Noncontributory. PHYSICAL EXAMINATION: Blood pressure 120/76, pulse 84. She appears moderately uncomfortable. HEAD AND NECK: Normal. LUNGS: Clear. HEART: Respiratory rate. ABDOMEN: Soft, diffusely tender. No rebound. No guarding. No costovertebral angle (CVA) tenderness. EXTREMITIES: Nontender. LABORATORY DATA: Blood type is O positive, Rubella immune, RPR nonreactive, hepatitis B and C negative. ASSESSMENT: A 30-year-old G5, P4 female at 36-3/7 weeks status post fall. Patient is admitted to the labor for prolonged monitoring. She has been cleared from the emergency room after having both a CAT scan and pelvic ultrasound. She also had an EKG, which was normal. edited: 05/08/2016 0938 tkbill KING
== END 2016-04-19 23:00 | disposition home or self-care (01) ==
LOC: M LDO 20:41
PROVIDERS: ATTEND Specialist
DX: O99.89 Other specified diseases and conditions complicating pregnancy, childbirth and the puerperium (principal); Z3A.36 36 weeks gestation of pregnancy; W10.9XXA Fall (on) (from) unspecified stairs and steps, initial encounter; R10.9 Unspecified abdominal pain; R42 Dizziness and giddiness; X58.XXXA Exposure to other specified factors, initial encounter; Y93.9 Activity, unspecified; Y92.9 Unspecified place or not applicable; Y99.8 Other external cause status

== ENCOUNTER → 2016-04-21 | Outpatient (REF) | payer OTHER | LOC: M LAB REF 13:14 | PROVIDERS: ATTEND Obstetrics & Gynecology | DX: Z34.83 Encounter for supervision of other normal pregnancy, third trimester (principal) ==

== ENCOUNTER 2016-05-07 19:58 | Inpatient (IN) | payer OTHER ==
[~2016-05-07] VITALS: Ht 157.5 cm; Wt 70.0 kg
[2016-05-07 20:09] VITALS: BP 116/76
[2016-05-07] MEDS ORDERED: miSOPROStol 50 MCG 1/2 TAB (S0191) PO SCH (21:00)
[2016-05-07] MEDS ORDERED: miSOPROStol 50 MCG 1/2 TAB (S0191) As Ordered ONE (21:04)
[2016-05-07 21:17] LABS: MEAN CORPUSCULAR HEMOGLOBIN 32.2 pg (27.0-33.0); MEAN CORPUSCULAR HGB CONC 35.7 g/dl (32.0-36.5); MEAN CORPUSCULAR VOLUME 90.2 fl (80.0-96.0); WHITE BLOOD COUNT 9.8 K/mm3 (4.0-10.0)
[2016-05-07 21:59] VITALS: BP 107/58
[2016-05-07] MEDS ORDERED: RHOGAM 300 MCG (1500 IU) INJ (J2790) IM SCH (22:00)
[2016-05-07] MEDS ORDERED: METHYLERGONOVINE MALEATE 0.2 MG TAB PO PRN (22:00)
[2016-05-07] MEDS ORDERED: OXYTOCIN DRIP 30 UNITS in APPROPRIATE DILUENT 1 EA IV ONE (22:00)
[2016-05-07] MEDS ORDERED: DOCUSATE SODIUM 100 MG CAP PO PRN (22:00)
[2016-05-07] MEDS ORDERED: DIBUCAINE 1% OINTMENT 30GM TOP PRN (22:00)
[2016-05-07] MEDS ORDERED: ACETAMINOPHEN 500 MG TAB PO PRN (22:00)
[2016-05-07] MEDS ORDERED: MEASLES,MUMPS,RUBELLA VACCINE INJ (MMR-II) (90707) SC SCH (22:00)
[2016-05-07] MEDS ORDERED: IBUPROFEN 800 MG TAB PO PRN (22:00)
[2016-05-08] VITALS (41 sets, daily range): BP systolic 82–131; BP diastolic 50–83
--- NOTE | 2016-05-08 00:24 | HPE ---
DATE OF ADMISSION: 05/07/2016 HISTORY: 30-year-old, (G) 5, para (P) 4 female at 39-0/7 weeks gestation by last menstrual period (LMP) consistent with 9-week ultrasound, estimated date of confinement (EDC) 05/14/2016, presents for labor induction. The patient is having contractions every 8 minutes roughly. The patient's indication for induction is chronic back pain, which is causing significant disability during the . COURSE: The patient's initial care with [facility] was 14 weeks gestation on 11/19/2015. Her blood pressure was 112/68. The remainder of course was unremarkable with the exception of severe back pain issues. The back pain was related to a prior back injury. MEDICAL HISTORY: Back pain. SURGICAL HISTORY: Cholecystectomy. ALLERGIES: CLARITIN and REGLAN. SOCIAL HISTORY: The patient denies cigarettes, alcohol or drug use. Father of the baby is involved. FAMILY HISTORY: Noncontributory. PHYSICAL EXAMINATION: Blood pressure 120/72, weight 163. She appears comfortable. HEAD/NECK: Examination normal. LUNGS: Clear. HEART: Regular rate and rhythm. ABDOMEN: Nontender. Gravid. heart tones category 1. Contractions every 8-10 minutes. STERILE VAGINAL EXAMINATION: 3 cm, 70%, -2 station, vertex, intact. EXTREMITIES: Nontender. LABORATORIES: O positive. Rubella immune. RPR nonreactive. Hepatitis B and C negative. HIV negative. Diabetes screen 93. Group B Streptococcus (GBS) negative on 04/21/2016. ASSESSMENT: 30-year-old (G) 5, para (P) 4 female 39 weeks and 0/7 days gestation presents for labor induction. The risks of induction were discussed. The patient is admitted on 05/07/2016.
[2016-05-08] MEDS ORDERED: miSOPROStol 50 MCG 1/2 TAB (S0191) PO SCH (01:00)
[2016-05-08] MEDS ORDERED: FENTANYL 2MCG/ML ROPIVACAINE 0.2% NACL 250 ML CADD As Ordered ONE (01:10)
[2016-05-08] MEDS ORDERED: OXYTOCIN DRIP 30 UNITS in APPROPRIATE DILUENT 1 EA IV SCH (02:45)
[2016-05-08] MEDS ORDERED: ONDANSETRON 4MG/2ML VIAL (J2405) IV PRN ×2 (08:00→11:45)
[2016-05-08] MEDS ORDERED: METHYLERGONOVINE MALEATE 0.2 MG TAB PO PRN (08:00)
[2016-05-08] MEDS ORDERED: DOCUSATE SODIUM 100 MG CAP PO PRN (08:00)
[2016-05-08] MEDS ORDERED: ACETAMINOPHEN 500 MG TAB PO PRN (08:00)
[2016-05-08] MEDS ORDERED: IBUPROFEN 800 MG TAB PO PRN (08:00)
[2016-05-08] MEDS ORDERED: OXYTOCIN DRIP 30 UNITS in APPROPRIATE DILUENT 1 EA IV ONE (08:00)
[2016-05-08] MEDS ORDERED: DIBUCAINE 1% OINTMENT 30GM TOP PRN (08:00)
[2016-05-08] MEDS ORDERED: RHOGAM 300 MCG (1500 IU) INJ (J2790) IM SCH (08:00)
[2016-05-08] MEDS ORDERED: MEASLES,MUMPS,RUBELLA VACCINE INJ (MMR-II) (90707) SC SCH (08:00)
[2016-05-08] MEDS ORDERED: PRENATAL VITAMIN TAB PO SCH (09:00)
[2016-05-08] MEDS ORDERED: SERTRALINE HCL 50 MG TAB PO SCH (09:00)
[2016-05-08] MEDS: PRENATAL VITAMIN TAB PO SCH (09:00)
--- NOTE | 2016-05-08 09:37 | DN ---
DATE: 05/08/2016 PREDELIVERY DIAGNOSIS: Term , early labor. POSTDELIVERY DIAGNOSIS: Delivered. PROCEDURE: Spontaneous vaginal delivery. SPINDLE MAKER: Dr. Kaleb Sinclair ANESTHESIA: Epidural. ESTIMATED BLOOD LOSS: 300 mL. FINDINGS: 7 pound 9 ounce female infant, Apgars 9 and 9. DELIVERY SUMMARY: After a short second stage, the patient had spontaneous delivery of a 7 pound 9 ounce female , Apgars 9 and 9, under epidural anesthesia. There was no nuchal cord. The shoulders delivered spontaneously with ease. The cried spontaneously and was handed to the mother. The cord was doubly clamped and cut. The placenta delivered spontaneously and appeared to be intact. A small first degree perineal laceration did not require repair. Sponge counts were correct.
[2016-05-08] MEDS ORDERED: LACTATED RINGER'S 1000 ML IV PRN (11:45)
[2016-05-08] MEDS ORDERED: EPIDURAL/PCA KEYS XX PRN (11:45)
[2016-05-08] MEDS ORDERED: NALOXONE INJ 0.4 MG/1 ML VIAL (J2310) IV PRN (11:45)
[2016-05-08] MEDS ORDERED: ePHEDrine SULFATE 25 MG/5 ML(5MG/ML) SYRINGE IV PRN (11:45)
[2016-05-08] MEDS ORDERED: REFRIGERATOR IV KEYS XX PRN (11:45)
[2016-05-08] MEDS ORDERED: FENTANYL/ROPIVACAINE/NACL CADD 250 ML EPIDURAL SCH (11:45)
[2016-05-08] MEDS ORDERED: EPIDURAL COMMENT XX SCH (11:45)
[2016-05-08] MEDS ORDERED: diphenhydrAMINE INJ 50MG/ML VIAL (J1200) IV PRN (11:45)
[2016-05-09 06:10] VITALS: BP 145/78
[2016-05-09] MEDS: PRENATAL VITAMIN TAB PO SCH (09:00)
[2016-05-09] MEDS ORDERED: IBUP-1114 PO (09:39)
[2016-05-09] MEDS ORDERED: ACET50TA PO (09:39)
== END 2016-05-09 10:30 | disposition home or self-care (01) | DRG 560 ==
LOC: M LDO 19:58 → M LDI 20:37 → M OBS 05-08 11:27
PROVIDERS: ADMIT Specialist; ATTEND Specialist
PROC: 10E0XZZ Delivery of Products of Conception, External Approach (ICD-10-PCS; principal; 2016-05-08)
DX: O99.89 Other specified diseases and conditions complicating pregnancy, childbirth and the puerperium (principal); M54.5 Low back pain; Z3A.39 39 weeks gestation of pregnancy; O70.0 First degree perineal laceration during delivery; O26.893 Other specified pregnancy related conditions, third trimester; Z37.0 Single live birth

== ENCOUNTER → 2018-05-13 | Outpatient (CLI) | payer OTHER ==
[~2018-05-13] MED LIST changes: -COLA100C PO; +COLA100C5 PO; +IBUP-1114 PO; +MAPA500T2 PO
== END ==
LOC: M LRY 12:28
PROVIDERS: ATTEND Specialist
DX: N91.2 Amenorrhea, unspecified (principal)

== ENCOUNTER → 2018-05-15 | Outpatient (CLI) | payer OTHER | LOC: M LRY 10:12 | PROVIDERS: ATTEND Specialist | DX: N91.2 Amenorrhea, unspecified (principal) ==

== ENCOUNTER → 2018-06-13 | Outpatient (REF) | payer OTHER ==
[~2018-06-13] MED LIST changes: -ACET50TA PO; -DOCU10ELUD PO; +DOCU5LIQ PO; +MAPA500T17 PO
== END ==
LOC: M LAB REF 19:23
PROVIDERS: ATTEND Physician Assistant
DX: N39.0 Urinary tract infection, site not specified (principal)

== ENCOUNTER → 2018-06-20 | Outpatient (CLI) | payer OTHER ==
[2018-06-20 19:28] LABS: BASO % 0.3 % (0.0-1.0); EOS # 0.3 10^3/uL (0.0-0.50); EOS % 2.9 % (0.0-3.0); HEMATOCRIT 41.3 % (36.0-47.0); HEMOGLOBIN 13.7 g/dl (12.0-15.5); LYMPH # 2.1 10^3/uL (1.5-4.5); LYMPH % 22.4 % (24.0-44.0); MEAN CORPUSCULAR HEMOGLOBIN 30.2 pg (27.0-33.0); MEAN CORPUSCULAR HGB CONC 33.2 g/dl (32.0-36.5); MONO # 0.6 10^3/uL (0.0-0.8); MONO % 6.6 % (0.0-5.0); NEUTROPHILS # 6.3 10^3/uL (1.8-7.7); NEUTROPHILS % 67.4 % (36.0-66.0); PLATELET COUNT, AUTOMATED 242 10^3/uL (150-450); RED BLOOD COUNT 4.54 10^6/uL (4.00-5.40); WHITE BLOOD COUNT 9.3 10^3/uL (4.0-10.0)
[2018-06-20 22:18] LABS: CHLAMYDIA DNA AMPLIFICATION NEGATIVE (NEGATIVE); GC DNA AMPLIFICATION NEGATIVE (NEGATIVE)
[2018-06-21 08:33] LABS: HEPATITIS C VIRUS ABY INDEX 0.1 INDEX (<0.8); HIV 1&2 SCREEN CENTAUR NEGATIVE (NEGATIVE); RUBELLA IgG QUALITATIVE IMMUNE (IMMUNE)
== END ==
LOC: M SMT 13:32
PROVIDERS: ATTEND Advanced Practice Midwife
DX: Z36.89 Encounter for other specified antenatal screening (principal)

== ENCOUNTER → 2018-07-10 | Outpatient (REF) | payer OTHER ==
[2018-07-16 14:16] LABS: HPV HYBRID CAPTURE II Negative (Negative)
== END ==
LOC: M LAB REF 12:52
PROVIDERS: ATTEND Advanced Practice Midwife
DX: Z12.4 Encounter for screening for malignant neoplasm of cervix (principal)

== ENCOUNTER → 2018-08-28 | Outpatient (CLI) | payer OTHER ==
--- NOTE | 2018-08-29 06:42 | REP ---
OB ULTRASOUND: Real-time sonographic evaluation of the gravid uterus is performed. There is a single intrauterine gestation with an estimated gestational age 19 weeks 1 day, EDC 01/21/2019. Today's measurements indicate appropriate growth. Biometry and Growth: BPD 44 mm = 19 weeks 2 days, 53rd percentile HC 163 mm = 19 weeks 0 days, 48th percentile AC 143 mm = 19 weeks 5 days, 62nd percentile FL 31 mm = 19 weeks 4 days, 63rd percentile HC/AC ratio 1.13 within normal range Estimated weight 300 grams 65th percentile. SEEN/GROSSLY UNREMARKABLE Lateral ventricles Yes Posterior fossa Yes Upper lip Yes Four-chamber heart Yes LVOT Yes RVOT Yes Stomach Yes Cord insertion Yes Three vessel cord Yes Kidneys Yes Bladder Yes Spine No Cervical length: Closed and measures 4.0 cm in length. heart rate: 165 beats per minute. position: Vertex. Placenta: Fundal and grade 1 with previa or abruption. Amniotic fluid: Within normal limits. Electronically Signed by Chidi Quintanilla MD 08/29/2018 09:04 A
== END ==
LOC: M RAD 15:33
PROVIDERS: ATTEND Obstetrics & Gynecology
DX: Z34.82 Encounter for supervision of other normal pregnancy, second trimester (principal); Z3A.19 19 weeks gestation of pregnancy

== ENCOUNTER → 2018-09-18 | Outpatient (CLI) | payer OTHER ==
--- NOTE | 2018-09-18 20:43 | REP ---
Clinical: Anatomical evaluation. Comparison: 08/28/2018 . Findings: Examination demonstrates a single live intrauterine in cephalic presentation. motion is identified by technologist. Placenta is noted fundal and grade one without evidence for placenta previa or abruption. Amniotic fluid volume is normal. Cervix measures 4.6 cm in length and appears closed. Nuchal cord cannot be excluded. Gestational age by LMP 22 weeks 1 day with TINA 01/21/2019 . Gestational age by current measurements 22 weeks 2 days with TINA 01/20/2019 . FHR equals 156 beats per minute. Estimated weight 517 grams ( 61st percentile). Anatomical assessment demonstrates normal structures including cranium, choroid plexus, cavum, cerebellum/posterior fossa, facial features, lungs, diaphragm, stomach, cord insertion/three-vessel cord, kidneys/bladder, spine, and extremities. Impression: Single live intrauterine in cephalic presentation demonstrating appropriate interval growth. 2. Nuchal cord cannot be excluded. 3. In conjunction with prior examination anatomical assessment is complete and normal. Electronically Signed by Alexi Singleton MD 09/18/2018 08:35 P
== END ==
LOC: M RAD 13:24
PROVIDERS: ATTEND Obstetrics & Gynecology
DX: O09.42 Supervision of pregnancy with grand multiparity, second trimester (principal); Z3A.22 22 weeks gestation of pregnancy

== ENCOUNTER → 2018-10-31 | Outpatient (CLI) | payer OTHER ==
[2018-10-31 14:07] LABS: FREE T4 0.93 NG/DL (0.76-1.46); THYROID STIMULATING HORMONE 0.544 uIU/ML (0.358-3.740)
== END ==
LOC: M SMT 11:07
PROVIDERS: ATTEND Advanced Practice Midwife
DX: O26.813 Pregnancy related exhaustion and fatigue, third trimester (principal); Z3A.00 Weeks of gestation of pregnancy not specified; R42 Dizziness and giddiness

== ENCOUNTER → 2018-10-31 | Outpatient (CLI) | payer OTHER ==
[2018-10-31 13:25] LABS: BASO # 0.1 10^3/uL (0.0-0.2); BASO % 0.5 % (0.0-1.0); EOS # 0.2 10^3/uL (0.0-0.50); EOS % 1.4 % (0.0-3.0); HEMATOCRIT 37.1 % (36.0-47.0); HEMOGLOBIN 12.2 g/dl (12.0-15.5); LYMPH # 1.7 10^3/uL (1.5-4.5); LYMPH % 16.2 % (24.0-44.0); MEAN CORPUSCULAR HEMOGLOBIN 30.8 pg (27.0-33.0); MEAN CORPUSCULAR HGB CONC 32.9 g/dl (32.0-36.5); MEAN CORPUSCULAR VOLUME 93.7 fl (80.0-96.0); MONO # 0.6 10^3/uL (0.0-0.8); MONO % 5.8 % (0.0-5.0); NEUTROPHILS # 7.9 10^3/uL (1.8-7.7); PLATELET COUNT, AUTOMATED 217 10^3/uL (150-450); RED BLOOD COUNT 3.96 10^6/uL (4.00-5.40); WHITE BLOOD COUNT 10.5 10^3/uL (4.0-10.0)
== END ==
LOC: M SMT 09:59
PROVIDERS: ATTEND Advanced Practice Midwife
DX: O09.42 Supervision of pregnancy with grand multiparity, second trimester (principal); Z3A.00 Weeks of gestation of pregnancy not specified

== ENCOUNTER → 2018-12-27 | Outpatient (CLI) | payer OTHER | LOC: M SMT 13:12 | PROVIDERS: ATTEND Advanced Practice Midwife | DX: O09.43 Supervision of pregnancy with grand multiparity, third trimester (principal); Z3A.00 Weeks of gestation of pregnancy not specified ==

== ENCOUNTER → 2018-12-27 | Outpatient (REF) | payer OTHER | LOC: M LAB REF 16:51 | PROVIDERS: ATTEND Advanced Practice Midwife | DX: O09.43 Supervision of pregnancy with grand multiparity, third trimester (principal) ==

== ENCOUNTER 2019-01-14 22:40 | Inpatient (IN) | payer OTHER ==
[~2019-01-14] VITALS: Ht 157.5 cm; Wt 77.8 kg
[~2019-01-14 22:40] MED LIST changes: +ZOFR4TAB16 SL
[2019-01-14 22:56] VITALS: BP 111/61
[2019-01-14] MEDS ORDERED: LACTATED RINGER'S 1000 ML IV STA (23:34)
[2019-01-14] MEDS: LR 1,000 ML IV SCH (23:41)
[2019-01-14] MEDS ORDERED: OXYTOCIN DRIP 30 UNITS in IV 1 EA IV SCH (23:45)
[2019-01-14 23:51] LABS: HEMATOCRIT 36.1 % (36.0-47.0); HEMOGLOBIN 12.4 g/dl (12.0-15.5); MEAN CORPUSCULAR HEMOGLOBIN 31.7 pg (27.0-33.0); MEAN CORPUSCULAR HGB CONC 34.3 g/dl (32.0-36.5); MEAN CORPUSCULAR VOLUME 92.3 fl (80.0-96.0); PLATELET COUNT, AUTOMATED 163 10^3/uL (150-450); RED BLOOD COUNT 3.91 10^6/uL (4.00-5.40); WHITE BLOOD COUNT 9.5 10^3/uL (4.0-10.0)
[2019-01-15] VITALS (47 sets, daily range): BP systolic 75–132; BP diastolic 48–79
[2019-01-15] MEDS ORDERED: TUMS500C PO (00:22)
[2019-01-15] MEDS ORDERED: FENTANYL 2MCG/ML ROPIVACAINE 0.2% IN 0.9% NACL 100ML IVBAG As Ordered ONE (04:13)
[2019-01-15] MEDS ORDERED: FENTANYL/ROPIVACAINE/NACL BAG 100 ML EPIDURAL SCH (05:45)
[2019-01-15] MEDS ORDERED: EPIDURAL/PCA KEYS XX PRN (05:45)
[2019-01-15] MEDS ORDERED: ePHEDrine SULFATE 25 MG/5 ML(5MG/ML) SYRINGE IV PRN (05:45)
[2019-01-15] MEDS ORDERED: REFRIGERATOR IV KEYS XX PRN (05:45)
[2019-01-15] MEDS ORDERED: ONDANSETRON 4MG/2ML VIAL (J2405) IV PRN (05:45)
[2019-01-15] MEDS ORDERED: LACTATED RINGER'S 1000 ML IV PRN (05:45)
[2019-01-15] MEDS ORDERED: NALOXONE INJ 0.4 MG/1 ML VIAL (J2310) IV PRN (05:45)
[2019-01-15] MEDS ORDERED: EPIDURAL COMMENT XX SCH (05:45)
[2019-01-15] MEDS ORDERED: diphenhydrAMINE INJ 50MG/ML VIAL (J1200) IV PRN (05:45)
[2019-01-15] MEDS: LR 1,000 ML IV SCH (10:37)
[2019-01-15] MEDS ORDERED: OXYTOCIN DRIP 30 UNITS in IV 1 EA IV SCH ×4 (11:34)
[2019-01-15] MEDS ORDERED: DIBUCAINE 1% OINTMENT 30GM TOP PRN (11:45)
[2019-01-15] MEDS ORDERED: RHOGAM 300 MCG (1500 IU) INJ (J2790) IM SCH (11:45)
[2019-01-15] MEDS ORDERED: ACETAMINOPHEN TAB 650MG DOSE (2X325MG) PO PRN (11:45)
[2019-01-15] MEDS ORDERED: ANUSOL HC CREAM 30GM TOP PRN (11:45)
[2019-01-15] MEDS ORDERED: MEASLES,MUMPS,RUBELLA VACCINE INJ (MMR-II) (90707) SC SCH (11:45)
[2019-01-15] MEDS ORDERED: IBUPROFEN 600 MG TAB PO PRN (11:45)
[2019-01-15] MEDS ORDERED: ACETAMINOPHEN 500 MG TAB PO PRN (11:45)
[2019-01-15] MEDS ORDERED: DOCUSATE SODIUM 100 MG CAP PO PRN (11:45)
[2019-01-15] MEDS ORDERED: METHYLERGONOVINE MALEATE 0.2 MG TAB PO PRN (11:45)
--- NOTE | 2019-01-15 11:53 | DN ---
DATE OF DELIVERY: 01/15/2019 Silvia is a 33-year-old, 6, para 6-0-0-6 now, admitted to labor and delivery for social induction of labor. She did utilize an epidural for her labor coping. She reached complete dilation at 1109 hours. She pushed to a normal spontaneous vaginal delivery of a live female infant in left occiput anterior (KEITH) position with restitution to left occiput transverse (LOT) position at 1114 hours. There was a nuchal cord times one, loose, that was reduced manually at the time of delivery. The shoulders delivered spontaneously and the corpus immediately followed. The female was placed on the maternal abdomen, crying and active. Her mouth and nares were bulb suctioned. The cord was clamped times two and cut by the father of the baby under my direction. Spontaneous expulsion of an intact placenta with three-vessel cord by Maloney mechanism was at 1122 hours. Uterine hemostasis achieved with intravenous (IV) Pitocin rapid infusion and uterine fundal massage. Estimated blood loss 300 mL. Perineum and vagina inspected, noted too have a vaginal abrasion. It was hemostatic, and no repair was necessary. female weighed 3650 grams, 8 pounds 1 ounce, scores 9, 9. Mom is going to breastfeed her daughter, and the family have named her Cat. At the close of delivery, lap counts and instrument counts were correct and verified.
[2019-01-15] MEDS: IBUPROFEN 800 MG TAB PO PRN (13:43)
[2019-01-15] MEDS: PRENATAL VITAMINS CHEWABLE TABLET PO SCH (16:00)
[2019-01-16] MEDS: IBUPROFEN 800 MG TAB PO PRN (06:05)
[2019-01-16 06:19] VITALS: BP 116/57
[2019-01-16] MEDS: PRENATAL VITAMINS CHEWABLE TABLET PO SCH (08:07)
== END 2019-01-16 14:55 | disposition home or self-care (01) | DRG 560 ==
LOC: M LDI 22:40 → M OBS 01-15 14:05
PROVIDERS: ADMIT Obstetrics & Gynecology; ATTEND Obstetrics & Gynecology
PROC: 10E0XZZ Delivery of Products of Conception, External Approach (ICD-10-PCS; principal; 2019-01-15)
DX: O69.81X0 Labor and delivery complicated by cord around neck, without compression, not applicable or unspecified (principal); Z37.0 Single live birth; Z3A.39 39 weeks gestation of pregnancy

== ENCOUNTER → 2019-05-04 | Outpatient (CLI) | payer OTHER ==
[~2019-05-04] MED LIST changes: +TUMS500C PO
--- NOTE | 2019-05-04 11:32 | REP ---
Left foot four views: There is a nondisplaced fracture at the base of the fifth digit metatarsal. There is no dislocation. Mineralization and joint spaces are otherwise unremarkable. There are no calcifications or foreign bodies. Impression: Nondisplaced fracture at the base of the fifth digit metatarsal. Electronically Signed by Chidi Tam MD 05/04/2019 11:23 A
--- NOTE | 2019-05-04 11:34 | REP ---
Left ankle four views: There is a nondisplaced fracture at the base of the fifth metatarsal. Joint spaces are unremarkable. Lateral views performed with the foot in extension. The patient is unable to flex the left foot. Impression: Nondisplaced fracture base of the fifth digit metatarsal. Otherwise, negative left ankle. Electronically Signed by Chidi Tam MD 05/04/2019 11:26 A
== END ==
LOC: M LRY 10:09
PROVIDERS: ATTEND Nurse Practitioner Family
DX: S92.355A Nondisplaced fracture of fifth metatarsal bone, left foot, initial encounter for closed fracture (principal); X58.XXXA Exposure to other specified factors, initial encounter; Y92.9 Unspecified place or not applicable

== ENCOUNTER → 2020-10-01 | Outpatient (CLI) | payer OTHER ==
--- NOTE | 2020-10-01 16:26 | REPVR ---
PROCEDURE INFORMATION: Exam: CT Maxillofacial Without Contrast, Sinus Exam date and time: 10/01/2020 4:04 PM Age: 34 years old Clinical indication: Sinusitis; Chronic; Additional info: Chronic sinusitis TECHNIQUE: Imaging protocol: CT Maxillofacial without contrast. Focus on the sinuses. Radiation optimization: All CT scans at this facility use at least one of these dose optimization techniques: automated exposure control; mA and/or kV adjustment per patient size (includes targeted exams where dose is matched to clinical indication); or iterative reconstruction. COMPARISON: CT Head without contrast 04/19/2016 7:38 PM FINDINGS: Frontal sinuses: A small amount of mucus is present in the right frontal recess. The left frontal sinus is clear. Ethmoid air cells: Normal. No air-fluid levels. Sphenoid sinuses: Normal. No air-fluid levels. Maxillary sinuses: There is mild mucosal thickening in the maxillary sinuses. There are no air-fluid levels. There is obstruction of the right maxillary ostium and infundibulum by mucosal thickening. Nasal cavity/Septum: Mild S-shaped curvature of the nasal septum is noted. Orbital cavity: The orbital structures are unremarkable. Bones/joints: Unremarkable. Soft tissues: Unremarkable. IMPRESSION: 1. No acute abnormality. 2. Chronic findings as discussed above. Electronically signed by: Cleveland Marie On 10/01/2020 16:25:51 PM
== END ==
LOC: M RAD 15:44
PROVIDERS: ATTEND Otolaryngology
DX: J32.0 Chronic maxillary sinusitis (principal)

== ENCOUNTER → 2021-05-10 | Outpatient (CLI) | payer OTHER ==
[2021-05-10 12:59] LABS: BASO % 0.4 % (0.0-1.0); EOS # 0.3 10^3/uL (0.0-0.5); EOS % 2.6 % (0.0-3.0); HEMATOCRIT 40.2 % (36.0-47.0); HEMOGLOBIN 13.5 g/dl (12.0-15.5); LYMPH # 2.3 10^3/uL (1.5-5.0); LYMPH % 21.6 % (24.0-44.0); MEAN CORPUSCULAR HEMOGLOBIN 29.8 pg (27.0-33.0); MEAN CORPUSCULAR HGB CONC 33.6 g/dl (32.0-36.5); MEAN CORPUSCULAR VOLUME 88.7 fl (80.0-96.0); MONO # 0.7 10^3/uL (0.0-0.8); MONO % 6.1 % (2.0-8.0); NEUTROPHILS # 7.4 10^3/uL (1.5-8.5); NEUTROPHILS % 68.7 % (36.0-66.0); PLATELET COUNT, AUTOMATED 225 10^3/uL (150-450); RED BLOOD COUNT 4.53 10^6/uL (4.00-5.40); WHITE BLOOD COUNT 10.7 10^3/uL (4.0-10.0)
[2021-05-10 13:30] LABS: GLUCOSE CHALLENGE TEST 1 HOUR 84 MG/DL (LESS THAN 140)
[2021-05-10 14:59] LABS: HEPATITIS C VIRUS ABY INDEX 0.1 INDEX (<0.8); HIV 1&2 SCREEN CENTAUR NEGATIVE (NEGATIVE)
== END ==
LOC: M PLALAB 09:50
PROVIDERS: ATTEND Obstetrics & Gynecology
DX: Z36.89 Encounter for other specified antenatal screening (principal); Z3A.10 10 weeks gestation of pregnancy

== ENCOUNTER → 2021-06-02 | Outpatient (CLI) | payer OTHER | LOC: M WHC 12:03 | PROVIDERS: ATTEND Obstetrics & Gynecology | DX: Z34.82 Encounter for supervision of other normal pregnancy, second trimester (principal); Z3A.19 19 weeks gestation of pregnancy ==

== ENCOUNTER → 2021-07-21 | Outpatient (CLI) | payer OTHER | LOC: M WHC 12:55 | PROVIDERS: ATTEND Obstetrics & Gynecology | DX: Z36.2 Encounter for other antenatal screening follow-up (principal) ==

== ENCOUNTER → 2021-08-12 | Outpatient (CLI) | payer OTHER ==
[2021-08-12 14:38] LABS: HEMATOCRIT 37.4 % (36.0-47.0); HEMOGLOBIN 12.2 g/dl (12.0-15.5); MEAN CORPUSCULAR HGB CONC 32.6 g/dl (32.0-36.5); MEAN CORPUSCULAR VOLUME 92.1 fl (80.0-96.0); PLATELET COUNT, AUTOMATED 238 10^3/uL (150-450); RED BLOOD COUNT 4.06 10^6/uL (4.00-5.40); WHITE BLOOD COUNT 11.1 10^3/uL (4.0-10.0)
[2021-08-12 16:28] LABS: GC DNA AMPLIFICATION NEGATIVE (NEGATIVE)
== END ==
LOC: M PLALAB 10:17
PROVIDERS: ATTEND Obstetrics & Gynecology
DX: Z36.89 Encounter for other specified antenatal screening (principal); Z3A.23 23 weeks gestation of pregnancy

== ENCOUNTER → 2021-09-16 | Outpatient (REF) | payer OTHER | LOC: M SFHCWAGY 16:48 | PROVIDERS: ATTEND Advanced Practice Midwife | DX: R30.0 Dysuria (principal) ==

== ENCOUNTER → 2021-09-29 | Outpatient (REF) | payer OTHER | LOC: M SFHCWAGY 11:24 | PROVIDERS: ATTEND Advanced Practice Midwife | DX: O09.899 Supervision of other high risk pregnancies, unspecified trimester (principal) ==

== ENCOUNTER 2021-10-05 15:41 | Outpatient (CLI) | payer OTHER ==
[~2021-10-05] VITALS: Ht 157.5 cm; Wt 79.3 kg
[~2021-10-05 15:41] MED LIST changes: -ACET-897 PO; -ANUS2.5C2 TOP; -OMEP40CA4 PO; -PRENTAB9 PO; -PROAAER10 INH
[2021-10-05] MEDS ORDERED: PRENTAB9 PO (16:06)
[2021-10-05] MEDS ORDERED: ACET-897 PO (16:06)
[2021-10-05] MEDS ORDERED: COLA100C5 PO (16:06)
[2021-10-05] MEDS ORDERED: OMEP40CA4 PO (16:06)
[2021-10-05] MEDS ORDERED: PROAAER10 INH (16:06)
[2021-10-05] MEDS ORDERED: ANUS2.5C2 TOP (16:08)
[2021-10-05] MEDS ORDERED: HOME MED LIST COMPLETE! XX SCH (16:10)
[2021-10-05 16:14] VITALS: BP 94/54
[2021-10-05 16:16] VITALS: BP 110/66
[2021-10-05] MEDS ORDERED: FIORICET TAB PO PRN (16:20)
[2021-10-05] MEDS ORDERED: LR 1,000 ML IV SCH (16:20)
[2021-10-05] MEDS ORDERED: LR 1,000 ML IV ONE (16:20)
[2021-10-05 17:12] LABS: HEMATOCRIT 34.9 % (36.0-47.0); HEMOGLOBIN 11.9 g/dl (12.0-15.5); MEAN CORPUSCULAR HEMOGLOBIN 30.2 pg (27.0-33.0); MEAN CORPUSCULAR HGB CONC 34.1 g/dl (32.0-36.5); MEAN CORPUSCULAR VOLUME 88.6 fl (80.0-96.0); PLATELET COUNT, AUTOMATED 202 10^3/uL (150-450); RED BLOOD COUNT 3.94 10^6/uL (4.00-5.40); WHITE BLOOD COUNT 10.7 10^3/uL (4.0-10.0)
[2021-10-05 17:15] LABS: APPEARANCE, URINE HAZY (CLEAR); BACTERIA, URINE AUTO NEGATIVE (NEGATIVE); BILIRUBIN, URINE AUTO NEGATIVE (NEGATIVE); BLOOD, URINE BLOOD NEGATIVE (NEGATIVE); COLOR, URINE AMBER (YELLOW); GLUCOSE, URINE (UA) AUTO NEGATIVE (NEGATIVE); KETONE, URINE AUTO NEGATIVE (NEGATIVE); LEUKOCYTE ESTERASE, URINE AUTO 1+ (NEGATIVE); MUCUS, URINE SMALL (NEGATIVE); NITRITE, URINE AUTO NEGATIVE (NEGATIVE); PROTEIN, URINE AUTO 1+ mg/dL (NEGATIVE); RBC, URINE AUTO 0 /HPF (0-3); SPECIFIC GRAVITY URINE AUTO 1.024 (1.002-1.035); SQUAMOUS EPITHELIAL CELL UR AU 16 /HPF (0-6); WBC, URINE AUTO 3 /HPF (0-3)
[2021-10-05 17:54] VITALS: BP 101/51
[2021-10-05 18:37] LABS: ALBUMIN 2.7 GM/DL (3.2-5.2); BILIRUBIN,DIRECT 0.1 MG/DL (0.0-0.2); BILIRUBIN,TOTAL 0.6 MG/DL (0.2-1.0); TOTAL PROTEIN 6.2 GM/DL (6.4-8.2)
[2021-10-05 19:04] VITALS: BP 113/62
== END 2021-10-05 19:00 | disposition home or self-care (01) ==
LOC: M LDO 15:41
PROVIDERS: ATTEND Advanced Practice Midwife
DX: O26.893 Other specified pregnancy related conditions, third trimester (principal); R10.10 Upper abdominal pain, unspecified; M54.50 Low back pain, unspecified; R42 Dizziness and giddiness; O09.43 Supervision of pregnancy with grand multiparity, third trimester; O99.343 Other mental disorders complicating pregnancy, third trimester; F41.9 Anxiety disorder, unspecified; F32.A Depression, unspecified; Z3A.36 36 weeks gestation of pregnancy

== ENCOUNTER → 2021-10-05 | Outpatient (CLI) | payer OTHER ==
[~2021-10-05] MED LIST changes: +ACET-897 PO; +ANUS2.5C2 TOP; +OMEP40CA4 PO; +PRENTAB9 PO; +PROAAER10 INH
== END ==
LOC: M WHC 13:55
PROVIDERS: ATTEND Advanced Practice Midwife
DX: O09.899 Supervision of other high risk pregnancies, unspecified trimester (principal); Z3A.36 36 weeks gestation of pregnancy

== ENCOUNTER → 2021-10-12 | Outpatient (CLI) | payer OTHER ==
[~2021-10-12] MED LIST changes: +ACET-897 PO; +ANUS2.5C2 TOP; +OMEP40CA4 PO; +PRENTAB9 PO; +PROAAER10 INH
[2021-10-12 19:20] LABS: ALBUMIN 2.8 GM/DL (3.2-5.2); ALT/SGPT 12 U/L (12-78); BILIRUBIN,TOTAL 0.9 MG/DL (0.2-1.0); BLOOD UREA NITROGEN 7 MG/DL (7-18); CALCIUM LEVEL 9.2 MG/DL (8.5-10.1); CARBON DIOXIDE LEVEL 24 MEQ/L (21-32); CHLORIDE LEVEL 105 MEQ/L (98-107); CREATININE FOR GFR 0.68 MG/DL (0.55-1.30); GLOMERULAR FILTRATION RATE > 60.0 (>60); GLUCOSE, FASTING 76 MG/DL (70-100); POTASSIUM SERUM 4.3 MEQ/L (3.5-5.1); SODIUM LEVEL 138 MEQ/L (136-145); TOTAL PROTEIN 6.6 GM/DL (6.4-8.2)
== END ==
LOC: M LAB 16:02
PROVIDERS: ATTEND Advanced Practice Midwife
DX: O99.713 Diseases of the skin and subcutaneous tissue complicating pregnancy, third trimester (principal)

== ENCOUNTER 2021-10-27 08:22 | Inpatient (IN) | payer OTHER ==
[~2021-10-27] VITALS: Ht 157.5 cm; Wt 79.4 kg
[2021-10-27] VITALS (17 sets, daily range): BP systolic 90–159; BP diastolic 55–99
[2021-10-27] MEDS ORDERED: HOME MED LIST COMPLETE! XX SCH (08:50)
[2021-10-27 10:18] LABS: HEMOGLOBIN 11.5 g/dl (12.0-15.5); MEAN CORPUSCULAR HEMOGLOBIN 29.4 pg (27.0-33.0); MEAN CORPUSCULAR HGB CONC 32.9 g/dl (32.0-36.5); MEAN CORPUSCULAR VOLUME 89.5 fl (80.0-96.0); PLATELET COUNT, AUTOMATED 191 10^3/uL (150-450); RED BLOOD COUNT 3.91 10^6/uL (4.00-5.40)
[2021-10-27] MEDS: miSOPROStol 50MCG 1/2 TABLET SL SCH ×2 (10:19→14:41)
[2021-10-27] MEDS ORDERED: LACTATED RINGER'S 1000 ML IV STA (17:09)
[2021-10-27] MEDS ORDERED: LR 1,000 ML IV SCH (17:10)
[2021-10-27] MEDS ORDERED: FENTANYL 2MCG/ML ROPIVACAINE 0.2% IN 0.9% NACL 100ML IVBAG As Ordered ONE (17:23)
[2021-10-27] MEDS ORDERED: OXYTOCIN 30 UNITS IN 0.9% NaCl 500ML IV BAG (J2590) As Ordered ONE (17:55)
[2021-10-27] MEDS ORDERED: DOCUSATE SODIUM 100MG CAPSULE PO PRN (19:00)
[2021-10-27] MEDS ORDERED: METHYLERGONOVINE MALEATE 0.2 MG TAB PO PRN (19:00)
[2021-10-27] MEDS ORDERED: DIBUCAINE 1% OINTMENT 30GM TOP PRN (19:00)
[2021-10-27] MEDS ORDERED: ONDANSETRON 4MG 2ML VIAL IV PRN (19:00)
[2021-10-27] MEDS ORDERED: ACETAMINOPHEN 500 MG TAB PO PRN (19:00)
[2021-10-27] MEDS ORDERED: ACETAMINOPHEN TAB 650MG DOSE (2X325MG) PO PRN (19:00)
[2021-10-27] MEDS ORDERED: IBUPROFEN 600MG TAB PO PRN (19:00)
[2021-10-27] MEDS ORDERED: RHOGAM 300 MCG (1500 IU) INJ (J2790) IM SCH (19:00)
[2021-10-27] MEDS ORDERED: OXYTOCIN DRIP 30 UNITS in IV 1 EA IV ONE (19:00)
[2021-10-27] MEDS: IBUPROFEN 800 MG TAB PO PRN (19:13)
[2021-10-28] MEDS ORDERED: NALOXONE INJ 0.4MG/1ML VIAL (J2310 PER 1MG) IV PRN (01:00)
[2021-10-28] MEDS ORDERED: ONDANSETRON 4MG 2ML VIAL IV PRN (01:00)
[2021-10-28] MEDS ORDERED: LR 500 ML IV PRN (01:00)
[2021-10-28] MEDS ORDERED: FENTANYL/ROPIVACAINE/NACL BAG 100 ML EPIDURAL SCH (01:00)
[2021-10-28] MEDS ORDERED: EPIDURAL/PCA KEYS XX PRN (01:00)
[2021-10-28] MEDS ORDERED: ePHEDrine SULFATE 25 MG/5 ML(5MG/ML) SYRINGE IVP PRN (01:00)
[2021-10-28 06:00] VITALS: BP 130/62
[2021-10-28] MEDS: IBUPROFEN 800 MG TAB PO PRN (08:42)
[2021-10-28] MEDS ORDERED: PRENATAL VITAMINS CHEWABLE TABLET PO SCH (09:00)
[2021-10-28] MEDS ORDERED: ACET-683 PO (16:25)
[2021-10-28] MEDS ORDERED: IBUP80TA PO (16:25)
[2021-10-29] MEDS ORDERED: MEASLES,MUMPS,RUBELLA VACCINE INJ (MMR-II) (90707) SC.IMMUN ONE (09:00)
== END 2021-10-28 19:42 | disposition home or self-care (01) | DRG 560 ==
LOC: M LDI 08:22 → M OBS 20:06
PROVIDERS: ADMIT Specialist; ATTEND Specialist
PROC: 10E0XZZ Delivery of Products of Conception, External Approach (ICD-10-PCS; principal; 2021-10-27)
PROC: 10907ZC Drainage of Amniotic Fluid, Therapeutic from Products of Conception, Via Natural or Artificial Opening (ICD-10-PCS; 2021-10-27)
PROC: 3E0DXGC Introduction of Other Therapeutic Substance into Mouth and Pharynx, External Approach (ICD-10-PCS; 2021-10-27)
PROC: 0HQ9XZZ Repair Perineum Skin, External Approach (ICD-10-PCS; 2021-10-27)
DX: O70.0 First degree perineal laceration during delivery (principal); Z37.0 Single live birth; Z3A.39 39 weeks gestation of pregnancy

== ENCOUNTER → 2023-03-23 | Outpatient (CLI) | payer OTHER ==
[~2023-03-23] MED LIST changes: +ACET-683 PO; +IBUP80TA PO
== END ==
LOC: M CARPUL 14:06
PROVIDERS: ATTEND Physician Assistant
DX: R21 Rash and other nonspecific skin eruption (principal); I33.9 Acute and subacute endocarditis, unspecified

== ENCOUNTER 2023-04-02 14:34 | Emergency (ER) | payer OTHER ==
[~2023-04-02] VITALS: Ht 157.5 cm; Wt 94.9 kg
[2023-04-02] MEDS ORDERED: AZIT-12 (15:13)
[2023-04-02] MEDS ORDERED: OMEP1CAP71 (15:13)
[2023-04-02] MEDS ORDERED: LEVOTAB10 (15:13)
[2023-04-02] MEDS ORDERED: PRED20TA (15:13)
[2023-04-02 17:33] LABS: BASO # 0.1 10^3/uL (0.0-0.2); BASO % 0.6 % (0.0-1.0); EOS # 0.7 10^3/uL (0.0-0.5); EOS % 4.2 % (0.0-3.0); HEMOGLOBIN 15.9 g/dl (12.0-15.5); LYMPH % 22.9 % (24.0-44.0); MEAN CORPUSCULAR HEMOGLOBIN 29.7 pg (27.0-33.0); MEAN CORPUSCULAR HGB CONC 33.8 g/dl (32.0-36.5); MEAN CORPUSCULAR VOLUME 87.7 fl (80.0-96.0); MONO # 0.9 10^3/uL (0.0-0.8); MONO % 5.3 % (2.0-8.0); NEUTROPHILS # 11.5 10^3/uL (1.5-8.5); NEUTROPHILS % 65.9 % (36.0-66.0); PLATELET COUNT, AUTOMATED 404 10^3/uL (150-450); RED BLOOD COUNT 5.36 10^6/uL (4.00-5.40); WHITE BLOOD COUNT 17.5 10^3/uL (4.0-10.0)
[2023-04-02] MEDS ORDERED: methylPREDNISolone 125MG 2ML VIAL IV ONE (17:35)
[2023-04-02 17:48] LABS: ERYTHROCYTE SEDIMENTATION RATE 48 mm/hr (0-20)
[2023-04-02] MEDS ORDERED: KETOROLAC 30 MG/ML 1ML VIAL IV ONE (18:40)
[2023-04-02 18:59] LABS: APPEARANCE, URINE HAZY (CLEAR); BACTERIA, URINE AUTO NEGATIVE (NEGATIVE); BILIRUBIN, URINE AUTO NEGATIVE (NEGATIVE); BLOOD, URINE BLOOD 2+ (NEGATIVE); COLOR, URINE YELLOW (YELLOW); GLUCOSE, URINE (UA) AUTO NEGATIVE (NEGATIVE); KETONE, URINE AUTO NEGATIVE (NEGATIVE); LEUKOCYTE ESTERASE, URINE AUTO 2+ (NEGATIVE); MUCUS, URINE SMALL (NEGATIVE); NITRITE, URINE AUTO NEGATIVE (NEGATIVE); PROTEIN, URINE AUTO 3+ mg/dL (NEGATIVE); RBC, URINE AUTO 56 /HPF (0-3); SPECIFIC GRAVITY URINE AUTO 1.029 (1.002-1.035); SQUAMOUS EPITHELIAL CELL UR AU 8 /HPF (0-6); UROBILINOGEN, URINE AUTO 0.2 mg/dL (0.0-2.0); WBC, URINE AUTO 25 /HPF (0-3)
[2023-04-02 19:07] LABS: INR 0.99; PARTIAL THROMBOPLASTIN TIME 24.5 SECONDS (24.8-34.2); PROTHROMBIN TIME 12.8 SECONDS (12.5-14.5)
[2023-04-02 19:23] LABS: BARBITURATES URINE NEGATIVE (NEGATIVE)
[2023-04-02 19:24] LABS: AMPHETAMINES LEVEL URINE NEGATIVE (NEGATIVE); BENZODIAZEPINES URINE NEGATIVE (NEGATIVE); CANNABINOIDS URINE NEGATIVE (NEGATIVE); COCAINE METABOLITE URINE NEGATIVE (NEGATIVE); METHADONE URINE NEGATIVE (NEGATIVE); OPIATES URINE NEGATIVE (NEGATIVE); PHENCYCLIDINE URINE NEGATIVE (NEGATIVE)
[2023-04-02 19:27] VITALS: BP 142/76; TEMP 97.4; O2SAT 97
== END 2023-04-02 19:28 | disposition home or self-care (01) ==
LOC: M ED 14:34
DX: G11.4 Hereditary spastic paraplegia (principal); L95.9 Vasculitis limited to the skin, unspecified; G43.909 Migraine, unspecified, not intractable, without status migrainosus; Z88.8 Allergy status to other drugs, medicaments and biological substances; Z79.52 Long term (current) use of systemic steroids; Z79.83 Long term (current) use of bisphosphonates; Z79.899 Other long term (current) drug therapy
CPT/HCPCS: 80047; 80307; 81001; 84702; 85025; 85610; 85652; 85730; 86140; 96374; 96375; 99283; J1885; J2930

== ENCOUNTER → 2023-04-04 | Outpatient (REF) | payer OTHER ==
[~2023-04-04] MED LIST changes: +AZIT-12; +LEVOTAB10; +OMEP1CAP71; +PRED20TA
== END ==
LOC: M SFHCDERM 09:49
PROVIDERS: ATTEND Dermatology
DX: R21 Rash and other nonspecific skin eruption (principal)

== ENCOUNTER → 2023-04-04 | Outpatient (CLI) | payer OTHER ==
[2023-04-04 11:26] LABS: BASO # 0.1 10^3/uL (0.0-0.2); BASO % 0.2 % (0.0-1.0); HEMATOCRIT 42.6 % (36.0-47.0); HEMOGLOBIN 14.1 g/dl (12.0-15.5); LYMPH % 9.9 % (24.0-44.0); MEAN CORPUSCULAR HEMOGLOBIN 29.3 pg (27.0-33.0); MEAN CORPUSCULAR HGB CONC 33.1 g/dl (32.0-36.5); MEAN CORPUSCULAR VOLUME 88.4 fl (80.0-96.0); MONO # 1.1 10^3/uL (0.0-0.8); MONO % 5.1 % (2.0-8.0); NEUTROPHILS # 17.1 10^3/uL (1.5-8.5); NEUTROPHILS % 83.5 % (36.0-66.0); PLATELET COUNT, AUTOMATED 366 10^3/uL (150-450); RED BLOOD COUNT 4.82 10^6/uL (4.00-5.40); WHITE BLOOD COUNT 20.5 10^3/uL (4.0-10.0)
[2023-04-04 11:51] LABS: CREATININE,RANDOM URINE 212.7 MG/DL
[2023-04-04 11:52] LABS: ALBUMIN 3.4 G/DL (3.2-5.2); ALKALINE PHOSPHATASE 108 U/L (46-116); ALT/SGPT 23 U/L (7.0-40); AST/SGOT 10 U/L (<34); BILIRUBIN,TOTAL 0.4 MG/DL (0.3-1.2); BLOOD UREA NITROGEN 23 MG/DL (9-23); CALCIUM LEVEL 9.4 MG/DL (8.5-10.1); CARBON DIOXIDE LEVEL 26 MMOL/L (20-31); CHLORIDE LEVEL 108 MMOL/L (98-107); CREATININE FOR GFR 0.91 MG/DL (0.55-1.30); GLOMERULAR FILTRATION RATE > 60.0 (>60); GLUCOSE, FASTING 92 MG/DL (60-100); POTASSIUM SERUM 4.3 MMOL/L (3.5-5.1); SODIUM LEVEL 140 MMOL/L (136-145); TOTAL PROTEIN 6.9 G/DL (5.7-8.2)
[2023-04-04 11:54] LABS: COMPLEMENT C3 171.5 MG/DL (84.0-160.0); COMPLEMENT C4 28.9 MG/DL (12-36); RHEUMATOID FACTOR QUANT < 3.5 IU/ML (<14)
[2023-04-04 11:54] LABS: TOTAL PROTEIN,RANDOM URINE 361.5 MG/DL (0.0-14.0)
[2023-04-04 12:27] LABS: HEPATITIS C VIRUS ABY INDEX 0.02 INDEX (<0.8)
[2023-04-04 12:40] LABS: HEPATITIS B SURFACE ANTIBODY NEGATIVE (POSITIVE)
[2023-04-04 13:26] LABS: APPEARANCE, URINE HAZY (CLEAR); BACTERIA, URINE AUTO 1+ (NEGATIVE); BILIRUBIN, URINE AUTO NEGATIVE (NEGATIVE); BLOOD, URINE BLOOD 3+ (NEGATIVE); COLOR, URINE YELLOW (YELLOW); GLUCOSE, URINE (UA) AUTO NEGATIVE (NEGATIVE); GRANULAR CAST, URINE AUTO 4 /LPF; KETONE, URINE AUTO NEGATIVE (NEGATIVE); LEUKOCYTE ESTERASE, URINE AUTO 1+ (NEGATIVE); MUCUS, URINE SMALL (NEGATIVE); NITRITE, URINE AUTO NEGATIVE (NEGATIVE); PROTEIN, URINE AUTO 3+ mg/dL (NEGATIVE); RBC, URINE AUTO 37 /HPF (0-3); SPECIFIC GRAVITY URINE AUTO 1.029 (1.002-1.035); SQUAMOUS EPITHELIAL CELL UR AU 3 /HPF (0-6); UROBILINOGEN, URINE AUTO 0.2 mg/dL (0.0-2.0); WBC, URINE AUTO 33 /HPF (0-3)
[2023-04-05 11:47] LABS: CRYOGLOBULINS NEGATIVE (NEGATIVE)
== END ==
LOC: M LAB 10:05
PROVIDERS: ATTEND Dermatology
DX: R21 Rash and other nonspecific skin eruption (principal)

== ENCOUNTER → 2023-04-12 | Outpatient (CLI) | payer OTHER ==
[2023-04-12 19:12] LABS: APPEARANCE, URINE HAZY (CLEAR); BACTERIA, URINE AUTO NEGATIVE (NEGATIVE); BILIRUBIN, URINE AUTO NEGATIVE (NEGATIVE); BLOOD, URINE BLOOD 2+ (NEGATIVE); COLOR, URINE YELLOW (YELLOW); GLUCOSE, URINE (UA) AUTO NEGATIVE (NEGATIVE); KETONE, URINE AUTO NEGATIVE (NEGATIVE); LEUKOCYTE ESTERASE, URINE AUTO NEGATIVE (NEGATIVE); MUCUS, URINE SMALL (NEGATIVE); NITRITE, URINE AUTO NEGATIVE (NEGATIVE); PROTEIN, URINE AUTO 3+ mg/dL (NEGATIVE); RBC, URINE AUTO 41 /HPF (0-3); SPECIFIC GRAVITY URINE AUTO 1.029 (1.002-1.035); SQUAMOUS EPITHELIAL CELL UR AU 3 /HPF (0-6); UROBILINOGEN, URINE AUTO 0.2 mg/dL (0.0-2.0); WBC, URINE AUTO 6 /HPF (0-3)
[2023-04-12 19:15] LABS: HEMATOCRIT 45.1 % (36.0-47.0); HEMOGLOBIN 14.9 g/dl (12.0-15.5); MEAN CORPUSCULAR HEMOGLOBIN 29.7 pg (27.0-33.0); PLATELET COUNT, AUTOMATED 409 10^3/uL (150-450); RED BLOOD COUNT 5.01 10^6/uL (4.00-5.40); WHITE BLOOD COUNT 19.3 10^3/uL (4.0-10.0)
[2023-04-12 19:32] LABS: INR 0.93; PROTHROMBIN TIME 12.2 SECONDS (12.5-14.5)
[2023-04-12 19:33] LABS: PARTIAL THROMBOPLASTIN TIME 21.9 SECONDS (24.8-34.2)
[2023-04-12 19:41] LABS: ALBUMIN 3.2 G/DL (3.2-5.2); ALKALINE PHOSPHATASE 106 U/L (46-116); ALT/SGPT 15 U/L (7.0-40); AST/SGOT < 8 U/L (<34); BILIRUBIN,TOTAL 0.4 MG/DL (0.3-1.2); BLOOD UREA NITROGEN 24 MG/DL (9-23); CALCIUM LEVEL 9.3 MG/DL (8.5-10.1); CARBON DIOXIDE LEVEL 28 MMOL/L (20-31); CHLORIDE LEVEL 104 MMOL/L (98-107); CREATININE FOR GFR 0.95 MG/DL (0.55-1.30); GLOMERULAR FILTRATION RATE > 60.0 (>60); GLUCOSE, FASTING 120 MG/DL (60-100); POTASSIUM SERUM 4.1 MMOL/L (3.5-5.1); SODIUM LEVEL 139 MMOL/L (136-145); TOTAL PROTEIN 6.5 G/DL (5.7-8.2)
[2023-04-12 19:44] LABS: ERYTHROCYTE SEDIMENTATION RATE 19 mm/hr (0-20)
== END ==
LOC: M LAB 17:06
PROVIDERS: ATTEND Dermatology
DX: R04.0 Epistaxis (principal); R21 Rash and other nonspecific skin eruption

== ENCOUNTER → 2023-06-08 | Outpatient (CLI) | payer OTHER ==
[2023-06-08 17:48] LABS: ANTI-STREPTOLYSIN O QUANT 53.4 IU/ML (<195); COMPLEMENT C3 195.1 MG/DL (84.0-160.0)
[2023-06-08 17:49] LABS: ALKALINE PHOSPHATASE 85 U/L (46-116); BILIRUBIN,TOTAL 0.6 MG/DL (0.3-1.2); CALCIUM LEVEL 10.1 MG/DL (8.5-10.1)
[2023-06-08 17:55] LABS: HEPATITIS B SURFACE ANTIBODY NEGATIVE (POSITIVE)
[2023-06-08 18:06] LABS: APPEARANCE, URINE HAZY (CLEAR); BACTERIA, URINE AUTO 1+ (NEGATIVE); BILIRUBIN, URINE AUTO NEGATIVE (NEGATIVE); BLOOD, URINE BLOOD 3+ (NEGATIVE); COLOR, URINE YELLOW (YELLOW); GLUCOSE, URINE (UA) AUTO NEGATIVE (NEGATIVE); KETONE, URINE AUTO NEGATIVE (NEGATIVE); LEUKOCYTE ESTERASE, URINE AUTO NEGATIVE (NEGATIVE); MUCUS, URINE SMALL (NEGATIVE); NITRITE, URINE AUTO NEGATIVE (NEGATIVE); PROTEIN, URINE AUTO 3+ mg/dL (NEGATIVE); RBC, URINE AUTO 14 /HPF (0-3); SQUAMOUS EPITHELIAL CELL UR AU 0 /HPF (0-6); UROBILINOGEN, URINE AUTO 0.2 mg/dL (0.0-2.0); WBC, URINE AUTO 5 /HPF (0-3)
[2023-06-08 18:28] LABS: HEPATITIS B CORE ANTIBODY IGM NEGATIVE (NEGATIVE)
[2023-06-09 18:41] LABS: CRYOGLOBULINS NEGATIVE (NEGATIVE)
[2023-06-12 16:08] LABS: HEPATITIS B CORE ANTIBODY IGG Negative (Negative)
== END ==
LOC: M LAB 15:59
PROVIDERS: ATTEND Internal Medicine Hematology
DX: M31.0 Hypersensitivity angiitis (principal)

== ENCOUNTER → 2023-08-08 | Outpatient (CLI) | payer OTHER ==
[~2023-08-08] MED LIST changes: +FURO20TA2 PO; +LIDOCAINE 1% MDV 20ML VIAL As Ordered ONE; +MIDAZOLAM INJ 2MG/2ML VIAL As Ordered ONE; -OMEP1CAP71; +OMEP1CAP71 PO; +POTA-149 PO; +fentaNYL 100 MCG/2 ML INJECTION As Ordered ONE
[2023-08-08 08:35] VITALS: TEMP 98.5
[2023-08-08 09:07] LABS: BASO # 0.1 10^3/uL (0.0-0.2); BASO % 1.3 % (0.0-1.0); EOS # 0.7 10^3/uL (0.0-0.5); EOS % 7.7 % (0.0-3.0); HEMATOCRIT 42.8 % (36.0-47.0); HEMOGLOBIN 14.7 g/dl (12.0-15.5); LYMPH # 2.6 10^3/uL (1.5-5.0); LYMPH % 28.6 % (24.0-44.0); MEAN CORPUSCULAR HEMOGLOBIN 30.2 pg (27.0-33.0); MEAN CORPUSCULAR HGB CONC 34.3 g/dl (32.0-36.5); MEAN CORPUSCULAR VOLUME 87.9 fl (80.0-96.0); MONO # 0.7 10^3/uL (0.0-0.8); MONO % 7.9 % (2.0-8.0); NEUTROPHILS # 4.9 10^3/uL (1.5-8.5); NEUTROPHILS % 53.9 % (36.0-66.0); PLATELET COUNT, AUTOMATED 279 10^3/uL (150-450); RED BLOOD COUNT 4.87 10^6/uL (4.00-5.40); WHITE BLOOD COUNT 9.1 10^3/uL (4.0-10.0)
[2023-08-08 09:24] LABS: INR 1.08; PROTHROMBIN TIME 13.7 SECONDS (12.5-14.5)
[2023-08-08 12:35] VITALS: BP 127/75; O2SAT 95
== END ==
LOC: M IRPRO 08:25
PROVIDERS: ATTEND Internal Medicine Nephrology
DX: R31.9 Hematuria, unspecified (principal); R80.9 Proteinuria, unspecified; N18.1 Chronic kidney disease, stage 1
CPT/HCPCS: 36415; 50200; 76942; 85025; 85610; 88300; 99152; 99153; J2250; J3010

== ENCOUNTER → 2023-08-17 | Outpatient (REF) | payer OTHER ==
[~2023-08-17] MED LIST changes: -LIDOCAINE 1% MDV 20ML VIAL As Ordered ONE; -MIDAZOLAM INJ 2MG/2ML VIAL As Ordered ONE; -fentaNYL 100 MCG/2 ML INJECTION As Ordered ONE
[2023-08-17 20:21] LABS: CREATININE,RANDOM URINE 497.3 MG/DL; TOTAL PROTEIN,RANDOM URINE 279.7 MG/DL (0.0-14.0)
== END ==
LOC: M LAB REF 17:11
PROVIDERS: ATTEND Internal Medicine Nephrology
DX: N02.B1 Recurrent and persistent immunoglobulin A nephropathy with glomerular lesion (principal)

== ENCOUNTER → 2023-11-09 | Outpatient (REF) | payer OTHER ==
[2023-11-09 18:32] LABS: TOTAL PROTEIN,RANDOM URINE 164.8 MG/DL (0.0-14.0)
== END ==
LOC: M LAB REF 16:57
PROVIDERS: ATTEND Internal Medicine Nephrology
DX: N02.B1 Recurrent and persistent immunoglobulin A nephropathy with glomerular lesion (principal)

== ENCOUNTER → 2023-12-07 | Outpatient (REF) | payer OTHER ==
[2023-12-07 17:58] LABS: TOTAL PROTEIN,RANDOM URINE 137.1 MG/DL (0.0-14.0)
== END ==
LOC: M LAB REF 16:50
PROVIDERS: ATTEND Internal Medicine Nephrology
DX: R80.9 Proteinuria, unspecified (principal)

== ENCOUNTER → 2024-02-01 | Outpatient (REF) | payer OTHER ==
[2024-02-01 18:27] LABS: TOTAL PROTEIN,RANDOM URINE 57.7 MG/DL (0.0-14.0)
[2024-02-01 18:33] LABS: CREATININE,RANDOM URINE 103.4 MG/DL
== END ==
LOC: M LAB REF 16:55
PROVIDERS: ATTEND Internal Medicine Nephrology
DX: N02.8 Recurrent and persistent hematuria with other morphologic changes (principal)

== ENCOUNTER → 2024-02-15 | Outpatient (REF) | payer OTHER ==
[2024-02-15 13:56] LABS: AMORPHOUS SEDIMENT MODERATE (NEGATIVE); APPEARANCE, URINE TURBID (CLEAR); BACTERIA, URINE AUTO 1+ (NEGATIVE); BILIRUBIN, URINE AUTO NEGATIVE (NEGATIVE); BLOOD, URINE BLOOD 2+ (NEGATIVE); COLOR, URINE YELLOW (YELLOW); GLUCOSE, URINE (UA) AUTO NEGATIVE (NEGATIVE); KETONE, URINE AUTO NEGATIVE (NEGATIVE); LEUKOCYTE ESTERASE, URINE AUTO NEGATIVE (NEGATIVE); MUCUS, URINE MODERATE (NEGATIVE); NITRITE, URINE AUTO NEGATIVE (NEGATIVE); PROTEIN, URINE AUTO 2+ mg/dL (NEGATIVE); RBC, URINE AUTO 0 /HPF (0-3); SPECIFIC GRAVITY URINE AUTO 1.025 (1.002-1.035); SQUAMOUS EPITHELIAL CELL UR AU 0 /HPF (0-6); UROBILINOGEN, URINE AUTO 0.2 mg/dL (0.0-2.0); WBC, URINE AUTO 0 /HPF (0-3)
[2024-02-15 14:11] LABS: BASO # 0.1 10^3/uL (0.0-0.2); BASO % 0.8 % (0.0-1.0); EOS # 0.9 10^3/uL (0.0-0.5); EOS % 8.3 % (0.0-3.0); HEMATOCRIT 45.9 % (36.0-47.0); HEMOGLOBIN 14.4 g/dl (12.0-15.5); MEAN CORPUSCULAR HEMOGLOBIN 28.5 pg (27.0-33.0); MEAN CORPUSCULAR HGB CONC 31.4 g/dl (32.0-36.5); MEAN CORPUSCULAR VOLUME 90.9 fl (80.0-96.0); MONO # 0.6 10^3/uL (0.0-0.8); MONO % 5.6 % (2.0-8.0); NEUTROPHILS # 5.8 10^3/uL (1.5-8.5); NEUTROPHILS % 55.6 % (36.0-66.0); PLATELET COUNT, AUTOMATED 340 10^3/uL (150-450); RED BLOOD COUNT 5.05 10^6/uL (4.00-5.40); WHITE BLOOD COUNT 10.5 10^3/uL (4.0-10.0)
[2024-02-15 14:13] LABS: TOTAL PROTEIN,RANDOM URINE 60.2 MG/DL (0.0-14.0)
[2024-02-15 14:14] LABS: C REACTIVE PROTEIN QUANTITATIV < 0.50 MG/DL (<1.0); COMPLEMENT C3 201.7 MG/DL (84.0-160.0); COMPLEMENT C4 29.7 MG/DL (12-36)
[2024-02-15 14:15] LABS: ALBUMIN 3.9 G/DL (3.2-5.2); ALKALINE PHOSPHATASE 100 U/L (35-104); ALT/SGPT 40 U/L (7.0-40); AST/SGOT 30 U/L (<34); BILIRUBIN,TOTAL 0.4 MG/DL (0.3-1.2); BLOOD UREA NITROGEN 17 MG/DL (9-23); CALCIUM LEVEL 10.3 MG/DL (8.5-10.1); CARBON DIOXIDE LEVEL 29 MMOL/L (20-31); CHLORIDE LEVEL 105 MMOL/L (98-107); CREATININE FOR GFR 1.02 MG/DL (0.55-1.30); GLOMERULAR FILTRATION RATE > 60.0 (>60); GLUCOSE, FASTING 93 MG/DL (60-100); POTASSIUM SERUM 4.4 MMOL/L (3.5-5.1); SODIUM LEVEL 141 MMOL/L (136-145); TOTAL PROTEIN 7.9 G/DL (5.7-8.2)
[2024-02-15 14:18] LABS: CREATININE,RANDOM URINE 204.6 MG/DL
[2024-02-15 14:27] LABS: ERYTHROCYTE SEDIMENTATION RATE 36 mm/hr (0-20)
[2024-02-19 17:47] LABS: COMPLEMENT TOTAL (CH50) > 60 U/mL (31-60)
== END ==
LOC: M SFHCRHEU 09:46
PROVIDERS: ATTEND Internal Medicine Rheumatology
DX: R76.8 Other specified abnormal immunological findings in serum (principal); M25.50 Pain in unspecified joint; D69.0 Allergic purpura; Z79.60 Long term (current) use of unspecified immunomodulators and immunosuppressants

== ENCOUNTER → 2024-05-19 | Outpatient (CLI) | payer OTHER | LOC: M LAB 12:26 → M RAD 12:26 | PROVIDERS: ATTEND Internal Medicine Rheumatology | DX: R76.8 Other specified abnormal immunological findings in serum (principal); M25.50 Pain in unspecified joint; D69.0 Allergic purpura; Z79.60 Long term (current) use of unspecified immunomodulators and immunosuppressants; M47.818 Spondylosis without myelopathy or radiculopathy, sacral and sacrococcygeal region; M41.9 Scoliosis, unspecified; M47.814 Spondylosis without myelopathy or radiculopathy, thoracic region ==

== ENCOUNTER → 2024-06-04 | Outpatient (REF) | payer OTHER ==
[2024-06-04 18:08] LABS: CREATININE,RANDOM URINE 100.9 MG/DL
== END ==
LOC: M LAB REF 17:09
PROVIDERS: ATTEND Internal Medicine Nephrology
DX: R80.9 Proteinuria, unspecified (principal)

== ENCOUNTER → 2024-07-24 | Outpatient (CLI) | payer OTHER ==
[2024-07-24 10:32] LABS: PLATELET COUNT, AUTOMATED 314 10^3/uL (150-450)
[2024-07-24 10:57] LABS: INR 0.88; PARTIAL THROMBOPLASTIN TIME 24.9 SECONDS (24.8-34.2); PROTHROMBIN TIME 12.3 SECONDS (12.5-14.5)
[2024-07-24 12:03] LABS: COLLAGEN EPINEPHRINE 82 SECONDS (74-162)
== END ==
LOC: M LAB 09:43
PROVIDERS: ATTEND Student in an Organized Health Care Education/Training Program
DX: Z01.818 Encounter for other preprocedural examination (principal)

== ENCOUNTER → 2024-09-09 | Outpatient (CLI) | payer OTHER | LOC: M CARPUL 09:04 | PROVIDERS: ATTEND Physician Assistant | DX: R07.9 Chest pain, unspecified (principal) ==